=== PATIENT | female | born 1960 | race African-American/Black ===

== ENCOUNTER → 2016-12-01 | Outpatient (CLI) | payer BC | LOC: RAD 07:51 | PROVIDERS: ATTEND Surgery | DX: R22.2 Localized swelling, mass and lump, trunk (principal) | CPT/HCPCS: 82565; 72157; A9577 ==

== ENCOUNTER 2017-05-24 08:37 | Emergency (ER) | payer BC ==
[2017-05-24] MEDS ORDERED: KETOROLAC TROMETHAMINE INJ/PF 30 MG/1 ML SDV IV ONE (09:06)
[2017-05-24] MEDS ORDERED: IPRATROPIUM/ALBUTEROL 0.5-2.5 MG/3 ML AMPUL NEB ONE (09:07)
[2017-05-24] MEDS ORDERED: METHYLPREDNISOLONE INJ 125 MG/2 ML SDV IV ONE (09:07)
--- NOTE | 2017-05-24 09:11 | ER Document Report ---
ED Respiratory Problem - General Mode of Arrival: Ambulatory Information source: Patient TRAVEL OUTSIDE OF THE [place] IN LAST 30 DAYS: No - HPI Patient complains to provider of: Other - Difficulty breathing Associated symptoms: Other - See above <NYLA ROSAS - Last Filed: 05/24/17 09:05> <SEBASTIAN SANDS - Last Filed: 05/24/17 12:05> - General Chief Complaint: Breathing Difficulty Stated Complaint: DIFFICULTY BREATHING Time Seen by Provider: 05/24/17 08:55 Notes: Patient is a 56 year old female, with a past medical history including asthma, who presents to the emergency department complaining of difficulty breathing onset 3 days ago. Patient states that she sometimes has asthma exacerbations when there are weather changes but there wasn't anything major this weekend. Patient states she has used a nebulizer treatment at home 2x and her emergency inhaler 2x, states that the nebulizer treatments helped. Patient also complains of pain in her left chest when breathing in and nasal congestion. Patient denies cough. PCP: Dr. Burgess (NYLA ROSAS) - Related Data Allergies/Adverse Reactions: oxycodone HCl [From Percocet] Allergy (Intermediate, Verified 05/24/17 08:40) rash Penicillins Allergy (Verified 05/24/17 10:31) Past Medical History - General Information source: Patient - Social History Smoking Status: Never Smoker Family History: Reviewed & Not Pertinent Pulmonary Medical History: Reports: Hx Asthma Neurological Medical History: Reports: Hx Migraine GI Medical History: Reports: Hx Gastroesophageal Reflux Disease Musculoskeltal Medical History: Reports Hx Arthritis - Rheumatoid Past Surgical History: Reports: Hx Gynecologic Surgery - BSO, Hx Hysterectomy - Immunizations Hx Diphtheria, Pertussis, Tetanus Vaccination: Yes <NYLA ROSAS - Last Filed: 05/24/17 09:05> Review of Systems - Review of Systems Constitutional: No symptoms reported EENT: See HPI, Nose congestion Cardiovascular: No symptoms reported Respiratory: See HPI, Hurts to breathe, Other - Difficulty breathing. denies: Cough Gastrointestinal: No symptoms reported Genitourinary: No symptoms reported Female Genitourinary: No symptoms reported Musculoskeletal: No symptoms reported Skin: No symptoms reported Hematologic/Lymphatic: No symptoms reported Neurological/Psychological: No symptoms reported -: Yes All other systems reviewed and negative <NYLA ROSAS - Last Filed: 05/24/17 09:05> Physical Exam - Vital signs Interpretation: Tachypneic - Mild - General General appearance: Appears well, Alert - HEENT Head: Normocephalic, Atraumatic - Respiratory Respiratory status: Tachypnea - Mild Chest status: Nontender Breath sounds: Rhonchi - with cough Chest palpation: Normal - Cardiovascular Rhythm: Regular Heart sounds: Normal auscultation Murmur: No - Abdominal Inspection: Normal - Back Back: Normal, Nontender - Extremities General upper extremity: Normal inspection General lower extremity: Normal inspection - Neurological Neuro grossly intact: Yes Cognition: Normal Orientation: AAOx4 [place] Coma Scale Eye Opening: Spontaneous [place] Coma Scale Verbal: Oriented [place] Coma Scale Motor: Obeys Commands Jarvis Coma Scale Total: 15 Speech: Normal - Psychological Associated symptoms: Normal affect, Normal mood - Skin Skin Temperature: Warm Skin Moisture: Dry Skin Color: Normal <NYLA ROSAS - Last Filed: 05/24/17 09:05> Course <NYLA ROSAS - Last Filed: 05/24/17 09:05> - Laboratory Result Diagrams: 05/24/17 09:35 05/24/17 09:35 <SEBASTIAN SANDS - Last Filed: 05/24/17 12:05> - Re-evaluation Re-evalutation: 05/24/17 12:00 CT scan is negative for pulmonary embolus or infiltrates. Patient states her breathing is much better after breathing treatments. Auscultation does not really sound any different than previously. White blood cell count is low normal. She does report that she is almost out of albuterol for her nebulizer and her inhalers almost empty. (SEBASTIAN SANDS) - Vital Signs Vital signs: Temp Pulse Resp BP Pulse Ox 97.9 F 96 22 H 139/60 H 97 05/24/17 08:40 05/24/17 08:40 05/24/17 10:03 05/24/17 10:03 05/24/17 10:03 - Laboratory Laboratory results interpreted by me: 05/24/17 09:35 RDW 14.1 H Discharge <NYLA ROSAS - Last Filed: 05/24/17 09:05> <SEBASTIAN SANDS - Last Filed: 05/24/17 12:05> - Discharge Clinical Impression: Asthma exacerbation, Pleuritic chest pain Condition: Stable Disposition: HOME, SELF-CARE Additional Instructions: Pleurisy: Your chest pain has been diagnosed as pleuritis (pleurisy). This is an inflammation of the surface of the lung tissue. It can be caused by a virus or , occasionally, old scar tissue. It is painful but, for the most part, not a serious problem. This pain is usually made worse by deep breathing, coughing, or sudden movements of the upper body or arms. The treatment is relief of symptoms. It includes rest and anti- inflammatory medication. Resolution of the pain is usually rapid once anti- inflammatory medication is started. Warning signs of a more serious problem include: a fever, shortness of breath, pain that radiates to your jaw, shoulders or arms, or coughing up bloody sputum. If any of these symptoms occur, call the physician at once. //////////////////////////////////////////////////////////////////////////////// /////////////////////////////////////////////////////////// Your chest x-ray, CT scan, and lab work were normal. This appears to be an exacerbation of your asthma with pleuritic chest pain. You should use your nebulizer and inhalers regularly for shortness of breath. Start the prednisone as prescribed tomorrow. Take Tylenol and ibuprofen or Aleve for pain. Drink plenty of fluids. Get plenty of rest. Follow-up with Dr. Cedeno in 1-2 days if not improving. RETURN TO THE EMERGENCY ROOM IF ANY NEW OR WORSENING SYMPTOMS. Prescriptions: Albuterol Sulfate [Albuterol Sulfate 2.5mg/3 mL] 1 vial IH Q4 PRN #50 vial PRN Reason: Albuterol Sulfate [Proair HFA] 1 - 2 puff IH Q4 PRN #1 inhaler PRN Reason: Prednisone [Deltasone 10 mg Tablet] 10 mg PO ASDIR PRN #21 tablet PRN Reason: Referrals: PA CEDENO MD [Primary Care Provider] - Follow up as needed Scribe Attestation: 05/24/17 12:04 I personally performed the services described in the documentation, reviewed and edited the documentation which was dictated to the scribe in my presence, and it accurately records my words and actions. (SEBASTIAN SANDS) Scribe Documentation - Scribe Written by Kia:: kia Demarco, 05/24/17, 910 acting as scribe for :: Francisco <NYLA ROSAS - Last Filed: 05/24/17 09:05>
[2017-05-24 09:58] LABS: ABSOLUTE EOSINOPHILS # (AUTO) 0.1 10^3/uL (0.0-0.6); ABSOLUTE LYMPHOCYTES (AUTO) 1.9 10^3/uL (0.5-4.7); ABSOLUTE MONOCYTES (AUTO) 0.6 10^3/uL (0.1-1.4); ABSOLUTE NEUT (AUTO) 2.5 10^3/uL (1.7-8.2); BASOPHILS % (AUTO) 0.6 % (0-2); EOSINOPHILS % (AUTO) 1.6 % (0-6); HEMATOCRIT 39.8 % (36.0-47.0); HGB HCT DIFFERENCE -0.8; LYMPHOCYTES % (AUTO) 36.6 % (13-45); MEAN CORPUSCULAR HEMOGLOBIN 27.3 pg (27.0-33.4); MEAN CORPUSCULAR HGB CONC 32.7 g/dL (32.0-36.0); MEAN CORPUSCULAR VOLUME 84 fl (80-97); MONOCYTES % (AUTO) 11.3 % (3-13); RED BLOOD COUNT 4.77 10^6/uL (3.72-5.28); RED CELL DISTRIBUTION WIDTH 14.1 % (11.5-14.0); SEGMENTED NEUTROPHILS % (AUTO) 49.9 % (42-78); WHITE BLOOD COUNT 5.1 10^3/uL (4.0-10.5)
--- NOTE | 2017-05-24 09:58 | RADIOLOGY REPORT (SQ) ---
EXAM DESCRIPTION: CHEST SINGLE VIEW COMPLETED DATE/TIME: 05/24/2017 9:19 am REASON FOR STUDY: SOB, left pleuritic pain COMPARISON: March 2015 EXAM PARAMETERS: NUMBER OF VIEWS: One view. TECHNIQUE: Single frontal radiographic view of the chest acquired. RADIATION DOSE: NA LIMITATIONS: None. FINDINGS: LUNGS AND PLEURA: No opacities, masses or pneumothorax. No pleural effusion. MEDIASTINUM AND HILAR STRUCTURES: No masses. Contour normal. HEART AND VASCULAR STRUCTURES: Heart normal in size. Normal vasculature. BONES: No acute findings. HARDWARE: None in the chest. OTHER: No other significant finding. IMPRESSION: NO ACUTE RADIOGRAPHIC FINDING IN THE CHEST. TECHNICAL DOCUMENTATION: JOB ID: [id number]
[2017-05-24 10:09] LABS: ALANINE AMINOTRANSFERASE 35 U/L (9-52); ALBUMIN 4.5 g/dL (3.5-5.0); ALKALINE PHOSPHATASE 90 U/L (38-126); ANION GAP 9 (5-19); ASPARTATE AMINO TRANSFERASE 21 U/L (14-36); BILIRUBIN,DIRECT 0.3 mg/dL (0.0-0.4); BILIRUBIN,TOTAL 0.6 mg/dL (0.2-1.3); BLOOD UREA NITROGEN 12 mg/dL (7-20); CALCIUM 9.6 mg/dL (8.4-10.2); CARBON DIOXIDE 30 mmol/L (22-30); CHLORIDE 103 mmol/L (98-107); CREATININE RESULT 0.61 mg/dL (0.52-1.25); GLUCOSE 96 mg/dL (75-110); SODIUM 142.3 mmol/L (137-145); TOTAL PROTEIN 7.6 g/dL (6.3-8.2)
--- NOTE | 2017-05-24 11:01 | RADIOLOGY REPORT (SQ) ---
EXAM DESCRIPTION: CTA CHEST COMPLETED DATE/TIME: 05/24/2017 10:47 am REASON FOR STUDY: left pleutitic chest pain, SOB, elevated d-dimer COMPARISON: None. TECHNIQUE: CT scan of the chest performed using helical scanning technique with dynamic intravenous contrast injection. Images reviewed with lung, soft tissue and bone windows. Reconstructed coronal and sagittal MPR images reviewed. Additional 3 dimensional post-processing performed to develop Maximal Intensity Projection images (MT P). All images stored on PACS. All CT scanners at this facility use dose modulation, iterative reconstruction, and/or weight based d osing when appropriate to reduce radiation dose to as low as reasonably achievable (ALARA). [facility]: Dose Right [facility]: CareDose [facility]: Dose Right [facility]: Teradose 4D [facility]: [employer] CONTRAST TYPE AND DOSE: contrast/concentration: Isovue 370.00 mg/ml; Total Contrast Delivered: 74.0 ml; Total Saline Delivered: 101.4 ml RENAL FUNCTION: Creatinine 0.61 RADIATION DOSE: Up-to-date CT equipment and radiation dose reduction techniques were employed. CTDIv ol: 9.9 - 14.3 mGy. DLP: 507 mGy-cm. . LIMITATIONS: None. FINDINGS: LUNGS AND PLEURA: No masses, infiltrates, pneumothorax. No pleural effusions, calcificati ons. AORTA AND GREAT VESSELS: No aneurysm or dissection. HEART: No pericardial effusion. PULMONARY ARTERIES: No emboli visualized in the main pulmonary arteries or the segmental branches. HILAR AND MEDIASTINAL STRUCTURES: No identified masses or abnormal nodes. HARDWARE: None in the chest. UPPER ABDOMEN: There is fatty infiltration of the liver. THYROID AND OTHER SOFT TISSUES: No masses. No adenopathy. BONES: No acute or significant finding. 3D MIPS: Confirm above findings. OTHER: No other significant finding. IMPRESSION: NORMAL CTA OF THE CHEST. NO PULMONARY EMBOLI. TECHNICAL DOCUMENTATION: JOB ID: [id number] Quality ID # [id number]: Final reports with documentation of one or more dose reduction techniques (e.g., Au tomated exposure control, adjustment of the mA and/or kV according to patient size, use of iterative reconstruction technique) 2010 [email or web address]- All Rights Reserved
[2017-05-24] MEDS ORDERED: PREDNISONE 20 MG TABLET PO ONE (11:05)
[2017-05-24] MEDS ORDERED: ALBUTEROL SULFATE 0.083% NEB 2.5 MG/3 ML AMPUL NEB ONE (11:05)
[2017-05-24 12:02] VITALS: BP 144/77
== END 2017-05-24 12:10 | disposition home or self-care (01) ==
LOC: ER 08:37
DX: J45.901 Unspecified asthma with (acute) exacerbation (principal); R07.81 Pleurodynia; R07.1 Chest pain on breathing; R06.82 Tachypnea, not elsewhere classified; R09.81 Nasal congestion; Z88.5 Allergy status to narcotic agent; Z88.0 Allergy status to penicillin
CPT/HCPCS: 99284; 36415; 85025; 80053; 85379; 71010; 71275; J2930; J1885; J7512; J7620

== ENCOUNTER 2017-10-06 05:35 | Emergency (ER) | payer BC ==
[2017-10-06 06:07] LABS: APPEARANCE,URINE SLIGHTLY-CLOUDY; BILIRUBIN,URINE NEGATIVE (NEGATIVE); GLUCOSE, URINE NEGATIVE (NEGATIVE); KETONES,URINE NEGATIVE (NEGATIVE); LEUKOCYTE ESTERASE,URINE TRACE (NEGATIVE); NITRITE,URINE NEGATIVE (NEGATIVE); PROTEIN,URINE NEGATIVE (NEGATIVE); URINE SPECIFIC GRAVITY 1.018; UROBILINOGEN,URINE NEGATIVE mg/dL (<2.0)
[2017-10-06 06:07] LABS: ABSOLUTE EOSINOPHILS # (AUTO) 0.1 10^3/uL (0.0-0.6); ABSOLUTE LYMPHOCYTES (AUTO) 1.8 10^3/uL (0.5-4.7); ABSOLUTE MONOCYTES (AUTO) 0.6 10^3/uL (0.1-1.4); ABSOLUTE NEUT (AUTO) 3.7 10^3/uL (1.7-8.2); BASOPHILS % (AUTO) 0.5 % (0-2); EOSINOPHILS % (AUTO) 0.9 % (0-6); HEMOGLOBIN 12.3 g/dL (12.0-15.5); HGB HCT DIFFERENCE -0.1; LYMPHOCYTES % (AUTO) 29.3 % (13-45); MEAN CORPUSCULAR HEMOGLOBIN 27.3 pg (27.0-33.4); MEAN CORPUSCULAR HGB CONC 33.3 g/dL (32.0-36.0); MEAN CORPUSCULAR VOLUME 82 fl (80-97); MONOCYTES % (AUTO) 9.1 % (3-13); RED BLOOD COUNT 4.52 10^6/uL (3.72-5.28); SEGMENTED NEUTROPHILS % (AUTO) 60.2 % (42-78); WHITE BLOOD COUNT 6.1 10^3/uL (4.0-10.5)
[2017-10-06] MEDS ORDERED: MORPHINE SULFATE 10 MG/ML INJ IV PRN (06:08)
[2017-10-06] MEDS ORDERED: KETOROLAC TROMETHAMINE INJ/PF 30 MG/1 ML SDV IV ONE (06:08)
[2017-10-06] MEDS ORDERED: ONDANSETRON HCL INJ/PF 4 MG/2 ML SDV IV ONE ×2 (06:08→07:28)
[2017-10-06 06:11] LABS: WBC,URINE 0-1 /HPF
[2017-10-06 06:12] LABS: BACTERIA,URINE TRACE /HPF
[2017-10-06 06:30] LABS: ALANINE AMINOTRANSFERASE 47 U/L (9-52); ALBUMIN 4.2 g/dL (3.5-5.0); ALKALINE PHOSPHATASE 77 U/L (38-126); ANION GAP 13 (5-19); ASPARTATE AMINO TRANSFERASE 29 U/L (14-36); BILIRUBIN,DIRECT 0.3 mg/dL (0.0-0.4); BILIRUBIN,TOTAL 0.5 mg/dL (0.2-1.3); BLOOD UREA NITROGEN 12 mg/dL (7-20); CARBON DIOXIDE 26 mmol/L (22-30); CHLORIDE 105 mmol/L (98-107); CREATININE RESULT 0.65 mg/dL (0.52-1.25); GLUCOSE 120 mg/dL (75-110); POTASSIUM 3.8 mmol/L (3.6-5.0); SODIUM 144.1 mmol/L (137-145); TOTAL PROTEIN 6.9 g/dL (6.3-8.2)
[2017-10-06] MEDS ORDERED: HYDROCODONE/ACETAMINOPHEN 5-325 MG TABLET PO ONE (07:29)
--- NOTE | 2017-10-06 07:36 | ER Document Report ---
ED General - General Chief Complaint: Flank Pain Stated Complaint: BACK/SIDE PAIN Time Seen by Provider: 10/06/17 06:43 Notes: 57-year-old female with a history of kidney stones presents emergency department complaining of dull aching left-sided flank pain starting yesterday afternoon associated with sharp stabbing flank pain that started at 3 AM this morning. Admits nausea and vomiting, denies fevers or chills. States the pain radiates into her left lower quadrant, states this feels just like her prior kidney stones. Denies fevers or chills. TRAVEL OUTSIDE OF THE [place] IN LAST 30 DAYS: No - Related Data Allergies/Adverse Reactions: oxycodone HCl [From Percocet] Allergy (Intermediate, Verified 05/24/17 08:40) rash Penicillins Allergy (Verified 05/24/17 10:31) Past Medical History - General Information source: Patient - Social History Smoking Status: Never Smoker Chew tobacco use (# tins/day): No Frequency of alcohol use: None Drug Abuse: None Family History: Reviewed & Not Pertinent Patient has suicidal ideation: No Patient has homicidal ideation: No Pulmonary Medical History: Reports: Hx Asthma Neurological Medical History: Reports: Hx Migraine Renal/ Medical History: Denies: Hx Peritoneal Dialysis GI Medical History: Reports: Hx Gastroesophageal Reflux Disease Musculoskeltal Medical History: Reports Hx Arthritis - Rheumatoid Past Surgical History: Reports: Hx Gynecologic Surgery - BSO, Hx Hysterectomy - Immunizations Hx Diphtheria, Pertussis, Tetanus Vaccination: Yes Review of Systems - Review of Systems Constitutional: No symptoms reported. denies: Fever Gastrointestinal: See HPI, Abdominal pain, Nausea, Vomiting. denies: Diarrhea Genitourinary: See HPI -: Yes All other systems reviewed and negative Physical Exam - Vital signs Vitals: Temp Pulse Resp BP Pulse Ox 97.8 F 88 16 124/67 100 10/06/17 05:41 10/06/17 05:41 10/06/17 05:41 10/06/17 05:41 10/06/17 05:41 - Notes Notes: GENERAL: Alert, interacts well. No acute distress. HEAD: Normocephalic, atraumatic EYES: Pupils equal, round and reactive to light, extraocular movements intact. ENT: Oral mucosa moist, tongue midline. NECK: Full range of motion, supple, trachea midline. LUNGS: Clear to auscultation bilaterally, no wheezes, rales or rhonchi, no respiratory distress. HEART: Regular rate and rhythm, no murmurs, gallops, rubs. ABDOMEN: Soft, small left-sided abdominal pain without guarding, rigidity or rebounding, nondistended, bowel sounds present in all 4 quadrants. EXTREMITIES: Moves all 4 extremities spontaneously, no edema, radial and dorsalis pedis pulses 2/4 bilaterally. No cyanosis. NEUROLOGICAL: Alert and oriented x3, normal speech. PSYCH: Normal mood, normal affect. SKIN: Warm, Dry, normal turgor, no rashes or lesions noted. Course - Re-evaluation Re-evalutation: 10/06/17 07:31 CBC unremarkable, CMP unremarkable, urinalysis shows small blood and trace leukocyte esterase, 1-5 RBCs, 0-1 WBCs. This will be sent for culture although it is not suggestive of urinary tract infection at this time. Given the fact that the patient states she has had 2-3 CAT scans every year for the past several years for kidney stones and this is following her usual pattern of kidney stone and there is no sign of an infecting stone or kidney damage at this time patient and are agreeable to plan of not getting a CAT scan at this time, being treated presumptively for kidney stone and returning if the pain does not resolve within 3 days, if she develops fevers or has any new or concerning symptoms. - Vital Signs Vital signs: Temp Pulse Resp BP Pulse Ox 97.8 F 88 16 124/67 100 10/06/17 05:41 10/06/17 05:41 10/06/17 05:41 10/06/17 05:41 10/06/17 05:41 - Laboratory Result Diagrams: 10/06/17 06:00 10/06/17 06:00 Laboratory results interpreted by me: 10/06/17 10/06/17 05:50 06:00 Glucose 120 H Urine Blood SMALL H Ur Leukocyte Esterase TRACE H Discharge - Discharge Clinical Impression: Acute left flank pain, Ureterolithiasis Condition: Stable Disposition: HOME, SELF-CARE Additional Instructions: Kidney Stone You are passing or have passed a kidney stone. These stones are usually due to increased calcium or uric acid concentrations in your urine. Stones within the kidney itself are not painful. The pain occurs as the stone leaves the kidney to pass down the long tube, called the ureter, leading to the bladder. If the stone is small, it will usually pass by itself. Most patients can pass the stone at home. You will usually receive medications for pain, nausea or vomiting, and sometimes a medication to assist in passing the kidney stone. However, if the pain is very severe or if vomiting prevents you from taking oral pain medications, you may need to return for further treatment. Drink three or four quarts of fluids per day. You will be given pain medication (if needed) and urine strainers. Strain all your urine to see if the stone passes. If your doctor has asked you to bring the stone in for analysis, return with the stone once it has passed. Return if pain or vomiting become severe, if you develop a high fever, if you are unable to pass your urine, or if other unusual symptoms occur. Please strain your urine. You may take ibuprofen 800 mg every 8 hours as needed for pain. Pyridium will help to numb your ureter and bladder and decrease the pain. Zofran and Phenergan are for nausea, Flomax will help to pass the stone more easily. If your pain is not controlled by this combination of medications you may use the hydrocodone as well for pain. Please dissolve 1 scoop of MiraLAX (or generic equivalent) in a glass of water once a day to prevent constipation while on these pain medications. Do not drive or operate heavy machinery while taking these pain medications. Prescriptions: Ondansetron [Zofran Odt 4 mg Tablet] 1 - 2 tab PO Q4HP PRN #10 tab.rapdis PRN Reason: Hydrocodone/Acetaminophen [[place] 5-325 Tablet] 1 each PO ASDIR PRN #12 tablet PRN Reason: Promethazine HCl [Phenergan 25 mg Tablet] 25 - 50 mg PO ASDIR PRN #12 tablet PRN Reason: Tamsulosin HCl [Flomax 0.4 mg Cap.sr] 0.4 mg PO DAILY #7 cap.sr.24h Forms: Return to Work Referrals: TORRIE MELISSA MD [Primary Care Provider] - Follow up in 3-5 days
[2017-10-06 08:25] VITALS: BP 120/60
== END 2017-10-06 08:25 | disposition home or self-care (01) ==
LOC: ER 05:35
DX: N20.1 Calculus of ureter (principal); R10.9 Unspecified abdominal pain; M54.9 Dorsalgia, unspecified; R11.2 Nausea with vomiting, unspecified
CPT/HCPCS: 96376; 99284; 96374; 96375; 36415; 85025; 80053; 81001; J1885; J2270; J2405

== ENCOUNTER → 2017-10-12 | Outpatient (CLI) | payer BC ==
--- NOTE | 2017-10-12 16:37 | WOMENS IMAGING REPORT ---
EXAM DESCRIPTION: 3D SCREENING MAMMO BILAT COMPLETED DATE/TIME: 10/12/2017 3:54 pm REASON FOR STUDY: ROUTINE SCREENING; Z12.31 Z12.31 ENCNTR SCREEN MAMMOGRAM FOR MALIGNANT NEOPLASM O F SAMANTHA COMPARISON: Multiple since 2008 TECHNIQUE: Standard craniocaudal and mediolateral oblique views of each breast recorded using digita l acquisition and breast tomosynthesis. LIMITATIONS: None. FINDINGS: No masses, calcifications or architectural distortion. No areas of suspicion. Read with the assistance of CAD. .[facility] - R2 Cenova Version 1.3 .[facility] Imaging - R2 Cenova Version 1.3 .[facility] - R2 Cenova Version 2.4 .[facility] [place] - R2 Cenova Version 2.4 .[facility] - R2 Program Checker Version 9.2 IMPRESSION: NORMAL MAMMOGRAM. BIRADS 1. BREAST DENSITY: b. There are scattered areas of fibroglandular density. BIRAD: 1 NEGATIVE RECOMMENDATION: ROUTINE SCREENING COMMENT: The patient has been notified of the results by letter per SA requirements. Additional no tification policies are in place for contacting patient with suspicious or incomplete findings. Quality ID #[id number]: The [employer] recommends an annual screening mammogram for women aged 40 years or over. This facility utilizes a reminder system to ensure that all patients receive reminder letters, and/or direct phone calls for appointments. This includes reminders for routine scr eening mammograms, diagnostic mammograms, or other Breast Imaging Interventions when appropriate. Th is patient will be placed in the appropriate reminder system. The [employer] (ACR) has developed recommendations for screening MRI of the breast s in certain patient populations, to be used in conjunction with mammography. Breast MRI surveillanc e may be appropriate for women with more than 20% lifetime risk of developing breast cancer as deter mined by genetic testing, significant family history of the disease, or history of mantle radiation f or Hodgkins Disease. ACR Practice Guidelines 2008. DBT Technology DBT is a type of tomographic mammography. With conventional mammography, overlapping breast tissue ma y make lesions difficult to detect, even with good compression. DBT uses an x-ray tube that rotates a round the breast, taking images at different angles. These images are then combined to create thin sl ices of the breast that the radiologist can view as a 3D reconstruction. The [employer] unit can perform full-field digital mammograms (2D imaging); or DBT (3D imaging); or both, in a combination mode that quickly performs both the mammogram and the tomosynthesis scan while the breast is still compressed. PQRS 6045F: Fluoroscopic imaging is not utilized for breast tomosynthesis. TECHNICAL DOCUMENTATION: FINDING NUMBER: (1) ASSESSMENT: (1) JOB ID: [id number] [email or web address]- All Rights Reserved
== END ==
LOC: WI 15:38
PROVIDERS: ATTEND Internal Medicine
DX: Z12.31 Encounter for screening mammogram for malignant neoplasm of breast (principal)
CPT/HCPCS: 77063; G0202; 77067

== ENCOUNTER 2018-02-05 00:32 | Emergency (ER) | payer BC ==
[2018-02-05] MEDS ORDERED: ONDANSETRON HCL INJ/PF 4 MG/2 ML SDV IV ONE (01:07)
[2018-02-05] MEDS ORDERED: KETOROLAC TROMETHAMINE INJ/PF 30 MG/1 ML SDV IV ONE (01:07)
[2018-02-05] MEDS ORDERED: MORPHINE SULFATE 10 MG/ML INJ IV ONE (01:07)
[2018-02-05] MEDS ORDERED: NORMAL SALINE 1000 ML 1,000 ML IV ONE (01:08)
--- NOTE | 2018-02-05 01:09 | ER Document Report ---
ED GI/ - General Chief Complaint: Possible Kidney Stone Stated Complaint: RIGHT SIDE FLANK PAIN Time Seen by Provider: 02/05/18 01:03 Notes: Patient is a 57-year-old female who comes emergency department for chief complaint of pain in her right flank radiating around to her right mid to lower abdomen, symptoms started suddenly prior to arrival, she reports nausea, denies vomiting, denies fever or chills, denies vaginal discharge or bleeding. She does have a history of kidney stones in the kidney although she states she has never passed one. She has had a total hysterectomy. TRAVEL OUTSIDE OF THE [place] IN LAST 30 DAYS: No - Related Data Allergies/Adverse Reactions: oxycodone HCl [From Percocet] Allergy (Intermediate, Verified 05/24/17 08:40) rash Penicillins Allergy (Verified 05/24/17 10:31) escitalopram [From Lexapro] Adverse Reaction (Verified 02/05/18 00:47) venlafaxine [From Effexor] Adverse Reaction (Verified 02/05/18 00:46) Past Medical History - General Information source: Patient, Relative - Social History Smoking Status: Never Smoker Drug Abuse: None Lives with: Family Family History: Reviewed & Not Pertinent Pulmonary Medical History: Reports: Hx Asthma Neurological Medical History: Reports: Hx Migraine Renal/ Medical History: Denies: Hx Peritoneal Dialysis GI Medical History: Reports: Hx Gastroesophageal Reflux Disease Musculoskeltal Medical History: Reports Hx Arthritis - Rheumatoid Past Surgical History: Reports: Hx Gynecologic Surgery - BSO, Hx Hysterectomy - Immunizations Hx Diphtheria, Pertussis, Tetanus Vaccination: Yes Review of Systems - Review of Systems Constitutional: No symptoms reported EENT: No symptoms reported Cardiovascular: No symptoms reported Respiratory: No symptoms reported Gastrointestinal: See HPI Genitourinary: See HPI Female Genitourinary: No symptoms reported Musculoskeletal: No symptoms reported Skin: No symptoms reported Hematologic/Lymphatic: No symptoms reported Neurological/Psychological: No symptoms reported Physical Exam - Vital signs Vitals: Temp Pulse Resp BP Pulse Ox 97.9 F 86 24 H 137/69 H 100 02/05/18 00:51 02/05/18 00:51 02/05/18 00:51 02/05/18 00:51 02/05/18 00:51 Interpretation: Normal - General General appearance: Anxious In distress: Moderate - Patient rolling on the bed, appears to be uncomfortable - HEENT Head: Normocephalic, Atraumatic Eyes: Normal Conjunctiva: Normal Extraocular movements intact: Yes Eyelashes: Normal Pupils: PERRL Nasal: Normal Mouth/Lips: Normal Mucous membranes: Normal Pharynx: Normal Neck: Normal - Respiratory Respiratory status: No respiratory distress Chest status: Nontender Breath sounds: Normal. No: Decreased air movement, Wheezing Chest palpation: Normal - Cardiovascular Rhythm: Regular. No: Tachycardia Heart sounds: Normal auscultation, S1 appreciated, S2 appreciated Murmur: No - Abdominal Inspection: Normal Distension: No distension Bowel sounds: Normal Tenderness: Tender - Tender in the mid right and right lower quadrant, remaining abdomen is completely benign. No: Guarding Organomegaly: No organomegaly - Back Back: Normal, Nontender, CVA tenderness - Right CVA tenderness noted, otherwise unremarkable back exam - Extremities General upper extremity: Normal inspection, Nontender, Normal color, Normal ROM , Normal temperature General lower extremity: Normal inspection, Nontender, Normal color, Normal ROM , Normal temperature, Normal weight bearing. No: Rolanda's sign - Neurological Neuro grossly intact: Yes Cognition: Normal Orientation: AAOx4 Hawley Coma Scale Eye Opening: Spontaneous Hawley Coma Scale Verbal: Oriented Hawley Coma Scale Motor: Obeys Commands Hawley Coma Scale Total: 15 Speech: Normal Motor strength normal: LUE, RUE, LLE, RLE Sensory: Normal - Psychological Associated symptoms: Anxious - Skin Skin Temperature: Warm Skin Moisture: Dry Skin Color: Normal Course - Re-evaluation Re-evalutation: The patient initially very uncomfortable, she has right CVA tenderness and right mid to lower abdomen tenderness on exam, does suggest passing kidney stone. Patient medicated, afterwards symptoms resolved. CBC unremarkable, chemistry unremarkable, urinalysis shows hematuria but does not show infection. Patient's vital signs are unremarkable. CAT scan was performed after discussion with patient, decided to fully evaluate , she has a large left nephrolithiasis and a small 2 mm right ureterolithiasis with some hydronephrosis. No other abnormalities noted other than incidental fatty liver. Discussed all findings with patient, provided with a copy of her report, discussed follow-up, return precautions in detail. Patient and state understanding and agreement. - Vital Signs Vital signs: Temp Pulse Resp BP Pulse Ox 97.9 F 86 24 H 137/69 H 100 04/07/18 00:51 04/07/18 00:51 02/05/18 00:51 02/05/18 00:51 02/05/18 00:51 - Laboratory Result Diagrams: 02/05/18 01:45 02/05/18 01:45 Laboratory results interpreted by me: 02/05/18 02/05/18 02/05/18 01:45 01:45 01:45 MCH 26.6 L RDW 15.5 H Sodium 147.0 H Carbon Dioxide 33 H Urine Blood LARGE H Discharge - Discharge Clinical Impression: Ureterolithiasis, Flank pain Abdominal pain Qualifiers: Abdominal location: right lower quadrant Qualified Code(s): R10.31 - Right lower quadrant pain Condition: Stable Disposition: HOME, SELF-CARE Additional Instructions: You are passing a 2 mm kidney stone on the right side. You have a kidney stone that is large in the left kidney that is not passing at this time. You also have fatty liver as discussed. Follow-up with primary care for fatty liver, follow-up with urology for additional management of kidney stones, take medications as prescribed. Return if you worsen including fever, vomiting, increased pain, or any other concerning or worsening symptoms. [facility] [address] [place] [address] , [place] [address] Prescriptions: Morphine Sulfate [Morphine Ir 15 Mg Tablet] 15 mg PO Q4HP PRN #15 tablet PRN Reason: Ondansetron [Zofran Odt 4 mg Tablet] 1 - 2 tab PO Q4H PRN #15 tab.rapdis PRN Reason: For Nausea/Vomiting Tamsulosin HCl [Flomax 0.4 mg Cap.sr] 0.4 mg PO DAILY #7 cap.sr.24h Referrals: PA GIBSON MD [Primary Care Provider] - Follow up as needed
[2018-02-05 02:02] LABS: ABSOLUTE EOSINOPHILS # (AUTO) 0.1 10^3/uL (0.0-0.6); ABSOLUTE LYMPHOCYTES (AUTO) 1.9 10^3/uL (0.5-4.7); ABSOLUTE MONOCYTES (AUTO) 0.7 10^3/uL (0.1-1.4); ABSOLUTE NEUT (AUTO) 3.7 10^3/uL (1.7-8.2); BASOPHILS % (AUTO) 0.7 % (0-2); EOSINOPHILS % (AUTO) 1.9 % (0-6); HEMATOCRIT 39.3 % (36.0-47.0); HEMOGLOBIN 12.8 g/dL (12.0-15.5); LYMPHOCYTES % (AUTO) 29.9 % (13-45); MEAN CORPUSCULAR HEMOGLOBIN 26.6 pg (27.0-33.4); MEAN CORPUSCULAR HGB CONC 32.5 g/dL (32.0-36.0); MEAN CORPUSCULAR VOLUME 82 fl (80-97); MONOCYTES % (AUTO) 10.2 % (3-13); PLATELET COUNT 178 10^3/uL (150-450); RED BLOOD COUNT 4.81 10^6/uL (3.72-5.28); RED CELL DISTRIBUTION WIDTH 15.5 % (11.5-14.0); SEGMENTED NEUTROPHILS % (AUTO) 57.3 % (42-78); TOTAL CELLS COUNTED % (AUTO) 100 %; WHITE BLOOD COUNT 6.5 10^3/uL (4.0-10.5)
[2018-02-05 02:13] LABS: ALANINE AMINOTRANSFERASE 36 U/L (9-52); ALBUMIN 4.2 g/dL (3.5-5.0); ALKALINE PHOSPHATASE 74 U/L (38-126); ANION GAP 8 (5-19); ASPARTATE AMINO TRANSFERASE 27 U/L (14-36); BILIRUBIN,DIRECT 0.3 mg/dL (0.0-0.4); BILIRUBIN,TOTAL 0.3 mg/dL (0.2-1.3); BLOOD UREA NITROGEN 11 mg/dL (7-20); CALCIUM 9.2 mg/dL (8.4-10.2); CARBON DIOXIDE 33 mmol/L (22-30); CHLORIDE 106 mmol/L (98-107); GLUCOSE 106 mg/dL (75-110); POTASSIUM 3.6 mmol/L (3.6-5.0); TOTAL PROTEIN 7.5 g/dL (6.3-8.2)
--- NOTE | 2018-02-05 02:20 | RADIOLOGY REPORT (SQ) ---
EXAM DESCRIPTION: CT ABDOMEN AND PELVIS WITHOUT CONTRAST CLINICAL HISTORY: right flank and abd pain COMPARISON: 09/17/2015 TECHNIQUE: CT of the abdomen and pelvis without IV contrast. Evaluation of the solid organs and vasculature is suboptimal due to lack of IV contrast. DLP: 599.14 mGy-cm FINDINGS: Lung Bases: The visualized lung bases are clear. Bones: No destructive bone lesions identified. Minimal degenerative change of the spine. Abdomen: Liver: The liver has normal size and decreased density. Gallbladder: No calcified gallstones. Spleen, Pancreas, and Adrenal Glands: The spleen, pancreas, and adrenal glands are unremarkable. Kidneys: There is an 8 mm nonobstructing left renal calculus. Mild right hydroureter and hydronephrosis. 2 mm obstructing calculus in the distal right ureter within 1 cm of the right UVJ. Vasculature: The aorta and IVC have normal caliber and position. Stomach: The stomach and duodenum have normal course. Other: No free intraperitoneal air. No free fluid or lymphadenopathy. Pelvis: Bladder: Urinary bladder is unremarkable. Bowel: Scattered diverticula of the colon without pericolic fat stranding. Appendix: Normal appendix. Pelvis: Prior hysterectomy. IMPRESSION: 1. There is a 0.2 cm calculus in the distal right ureter producing mild right hydroureter and hydronephrosis. 2. There is a 0.8 cm nonobstructing left renal calculus. 3. Diverticulosis without evidence of diverticulitis. 4. Hepatic steatosis. This exam was performed according to our departmental dose-optimization program, which includes automated exposure control, adjustment of the mA and/or kV according to patient size and/or use of iterative reconstruction technique.
[2018-02-05 02:35] LABS: APPEARANCE,URINE CLEAR; BILIRUBIN,URINE NEGATIVE (NEGATIVE); COLOR,URINE YELLOW; GLUCOSE, URINE NEGATIVE (NEGATIVE); KETONES,URINE NEGATIVE (NEGATIVE); LEUKOCYTE ESTERASE,URINE NEGATIVE (NEGATIVE); NITRITE,URINE NEGATIVE (NEGATIVE); PROTEIN,URINE NEGATIVE (NEGATIVE); URINE SPECIFIC GRAVITY 1.011; UROBILINOGEN,URINE NEGATIVE mg/dL (<2.0)
[2018-02-05 03:47] VITALS: BP 149/79
== END 2018-02-05 03:47 | disposition home or self-care (01) ==
LOC: ER 00:32
DX: N20.1 Calculus of ureter (principal); R10.9 Unspecified abdominal pain; R10.31 Right lower quadrant pain
CPT/HCPCS: 99284; 36415; 85025; 80053; 81001; 76380; J1885; J2270; J2405; J7030

== ENCOUNTER 2018-03-21 02:34 | Inpatient (IN) | payer BC ==
[2018-03-21 03:34] LABS: ABSOLUTE BASOPHILS # (AUTO) 0.1 10^3/uL (0.0-0.2); ABSOLUTE EOSINOPHILS # (AUTO) 0.2 10^3/uL (0.0-0.6); ABSOLUTE LYMPHOCYTES (AUTO) 2.9 10^3/uL (0.5-4.7); ABSOLUTE MONOCYTES (AUTO) 0.9 10^3/uL (0.1-1.4); ABSOLUTE NEUT (AUTO) 3.1 10^3/uL (1.7-8.2); BASOPHILS % (AUTO) 0.7 % (0-2); EOSINOPHILS % (AUTO) 3.1 % (0-6); HEMATOCRIT 40.3 % (36.0-47.0); HEMOGLOBIN 13.1 g/dL (12.0-15.5); LYMPHOCYTES % (AUTO) 40.4 % (13-45); MEAN CORPUSCULAR HEMOGLOBIN 26.4 pg (27.0-33.4); MEAN CORPUSCULAR HGB CONC 32.4 g/dL (32.0-36.0); MEAN CORPUSCULAR VOLUME 82 fl (80-97); MONOCYTES % (AUTO) 12.1 % (3-13); PLATELET COUNT 181 10^3/uL (150-450); RED BLOOD COUNT 4.93 10^6/uL (3.72-5.28); RED CELL DISTRIBUTION WIDTH 14.6 % (11.5-14.0); SEGMENTED NEUTROPHILS % (AUTO) 43.7 % (42-78); TOTAL CELLS COUNTED % (AUTO) 100 %; WHITE BLOOD COUNT 7.1 10^3/uL (4.0-10.5)
[2018-03-21] MEDS ORDERED: KETOROLAC TROMETHAMINE INJ/PF 30 MG/1 ML SDV IV ONE (03:35)
[2018-03-21] MEDS ORDERED: ONDANSETRON HCL INJ/PF 4 MG/2 ML SDV IV ONE (03:35)
--- NOTE | 2018-03-21 03:39 | ER Document Report ---
ED General - General Mode of Arrival: Ambulatory Information source: Patient TRAVEL OUTSIDE OF THE [place] IN LAST 30 DAYS: No <MAVIS SCHROEDER - Last Filed: 03/21/18 05:56> <BENITO RYAN - Last Filed: 03/21/18 06:24> - General Chief Complaint: Flank Pain Stated Complaint: FLANK PAIN Time Seen by Provider: 03/21/18 03:14 Notes: Patient is a 57 year old female with a history of kidney stones presents to the emergency department complaining of left lower quadrant pain and left flank pain onset around 0200 today. Patient states she was woken up due to the a sharp lower quadrant abdominal pain that radiates into her left flank. Patient states her pain is similar to her previous kidney stones. She further states she has seen a urologist and was told she had a kidney stone that could possibly result in a lithotripsy. Patient also complains of nausea. Patient denies any diarrhea, vomiting, dysuria or fevers. (MAVIS SCHROEDER) - Related Data Allergies/Adverse Reactions: oxycodone HCl [From Percocet] Allergy (Intermediate, Verified 03/21/18 03:31) rash escitalopram [From Lexapro] Adverse Reaction (Verified 03/21/18 03:31) venlafaxine [From Effexor] Adverse Reaction (Verified 03/21/18 03:31) Past Medical History - General Information source: Patient - Social History Smoking Status: Never Smoker Cigarette use (# per day): No Chew tobacco use (# tins/day): No Smoking Education Provided: No Frequency of alcohol use: None Family History: Reviewed & Not Pertinent Patient has suicidal ideation: No Patient has homicidal ideation: No Pulmonary Medical History: Reports: Hx Asthma Neurological Medical History: Reports: Hx Migraine Renal/ Medical History: Reports: Hx Kidney Stones GI Medical History: Reports: Hx Gastroesophageal Reflux Disease Musculoskeltal Medical History: Reports Hx Arthritis - Rheumatoid Past Surgical History: Reports: Hx Gynecologic Surgery - BSO, Hx Hysterectomy - Immunizations Hx Diphtheria, Pertussis, Tetanus Vaccination: Yes <MAVIS SCHROEDER - Last Filed: 03/21/18 05:56> Review of Systems - Review of Systems Constitutional: No symptoms reported EENT: No symptoms reported Cardiovascular: No symptoms reported Respiratory: No symptoms reported Gastrointestinal: See HPI, Abdominal pain Genitourinary: See HPI, Flank pain Female Genitourinary: No symptoms reported Musculoskeletal: No symptoms reported Skin: No symptoms reported Hematologic/Lymphatic: No symptoms reported Neurological/Psychological: No symptoms reported -: Yes All other systems reviewed and negative <ALEXANDREMAVIS FLOWERS - Last Filed: 03/21/18 05:56> Physical Exam <ALEXANDREMAVIS FLOWERS - Last Filed: 03/21/18 05:56> <BENITO RYAN - Last Filed: 03/21/18 06:24> - Vital signs Vitals: Temp Pulse Resp BP Pulse Ox 98.1 F 82 18 137/77 H 98 03/21/18 02:39 03/21/18 02:39 03/21/18 02:39 03/21/18 02:39 03/21/18 02:39 - Notes Notes: GENERAL: Alert, interacts well. Appear quite uncomfortable. Crying and holding left hand side. HEAD: Normocephalic, atraumatic. EYES: Pupils equal, round, and reactive to light. Extraocular movements intact. ENT: Oral mucosa moist, tongue midline. NECK: Full range of motion. Supple. Trachea midline. LUNGS: Clear to auscultation bilaterally, no wheezes, rales, or rhonchi. No respiratory distress. HEART: Regular rate and rhythm. No murmurs, gallops, or rubs. ABDOMEN: Soft, tender to LLQ and left flank. Non-distended. Bowel sounds present in all 4 quadrants. EXTREMITIES: Moves all 4 extremities spontaneously. NEUROLOGICAL: Alert and oriented x3. Normal speech. PSYCH: Tearful, anxious. SKIN: Warm, dry, and normal turgor. Lipoma on the left forearm. (ALEXANDREMAVIS FLOWERS) Course - Laboratory Result Diagrams: 03/21/18 03:25 03/21/18 03:25 <ALEXANDREANDIRAY - Last Filed: 03/21/18 05:56> - Laboratory Result Diagrams: 03/21/18 03:25 03/21/18 03:25 <BENITO RYAN - Last Filed: 03/21/18 06:24> - Re-evaluation Re-evalutation: 03/21/18 05:30 CBC unremarkable, no leukocytosis, no left shift, CMP grossly unremarkable, no renal failure, urinalysis shows small blood but large leukocyte esterase, 37 WBCs only 4+ RBCs and 2+ bacteria. I am concerned for the possibility of an infection given the mismatch between RBCs and WBCs as well as the bacteria. CT scan of the abdomen and pelvis without contrast does show a 0.8 cm obstructing stone of the proximal left ureter producing moderate left hydronephrosis. Ketorolac and Zofran did not relieve her pain, continue to have nausea and dry heaving. Morphine did partially relieve her pain although she still is having some pain. I discussed these findings with Dr. Huerta the urologist who agrees that the patient should have a stent placed. He feels that her urinalysis more likely resume represents a cystitis than an infection behind the stone. He will place a stent in the patient today, patient's infection is being treated with Rocephin. Dr. Khan agrees to admit the patient to his service. (BENITO RYAN) - Vital Signs Vital signs: Temp Pulse Resp BP Pulse Ox 98.3 F 80 16 136/70 H 95 03/21/18 05:19 03/21/18 05:19 03/21/18 05:19 03/21/18 05:19 03/21/18 05:19 - Laboratory Laboratory results interpreted by me: 03/21/18 03/21/18 03/21/18 03:25 03:25 03:25 MCH 26.4 L RDW 14.6 H Carbon Dioxide 31 H Glucose 112 H ALT 53 H Urine Blood SMALL H Ur Leukocyte Esterase LARGE H Discharge <MAVIS SCHROEDER - Last Filed: 03/21/18 05:56> - Discharge Admitting Provider: Hospitalist - Bill Unit Admitted: Telemetry <BENTIO RYAN - Last Filed: 03/21/18 06:24> - Discharge Clinical Impression: Hydronephrosis concurrent with and due to calculi of kidney and ureter UTI (urinary tract infection) Qualifiers: Urinary tract infection type: acute cystitis Hematuria presence: with hematuria Qualified Code(s): N30.01 - Acute cystitis with hematuria Condition: Fair Disposition: ADMITTED INPATIENT Scribe Attestation: 03/21/18 06:24 I personally performed the services described in the documentation, reviewed and edited the documentation which was dictated to the scribe in my presence, and it accurately records my words and actions. (BENITO RYAN) Scribe Documentation - Scribe Written by Roberto:: Roberto Fierro, 03/21/2018 03:56 acting as scribe for :: Juan <MAVIS SCHROEDER - Last Filed: 03/21/18 05:56>
[2018-03-21 03:46] LABS: ALANINE AMINOTRANSFERASE 53 U/L (9-52); ALBUMIN 4.3 g/dL (3.5-5.0); ALKALINE PHOSPHATASE 81 U/L (38-126); ANION GAP 11 (5-19); ASPARTATE AMINO TRANSFERASE 30 U/L (14-36); BILIRUBIN,DIRECT 0.3 mg/dL (0.0-0.4); BILIRUBIN,TOTAL 0.4 mg/dL (0.2-1.3); BLOOD UREA NITROGEN 15 mg/dL (7-20); CALCIUM 9.8 mg/dL (8.4-10.2); CARBON DIOXIDE 31 mmol/L (22-30); CHLORIDE 102 mmol/L (98-107); GLUCOSE 112 mg/dL (75-110); POTASSIUM 3.8 mmol/L (3.6-5.0); SODIUM 143.5 mmol/L (137-145); TOTAL PROTEIN 7.4 g/dL (6.3-8.2)
[2018-03-21 03:51] LABS: APPEARANCE,URINE CLEAR; BILIRUBIN,URINE NEGATIVE (NEGATIVE); COLOR,URINE AMBER; GLUCOSE, URINE NEGATIVE (NEGATIVE); KETONES,URINE NEGATIVE (NEGATIVE); LEUKOCYTE ESTERASE,URINE LARGE (NEGATIVE); NITRITE,URINE NEGATIVE (NEGATIVE); PROTEIN,URINE NEGATIVE (NEGATIVE); URINE SPECIFIC GRAVITY 1.014; UROBILINOGEN,URINE NEGATIVE mg/dL (<2.0)
--- NOTE | 2018-03-21 04:15 | RADIOLOGY REPORT (SQ) ---
EXAM DESCRIPTION: CT ABDOMEN AND PELVIS WITHOUT CONTRAST CLINICAL HISTORY: left flank pain, h/o stones COMPARISON: 02/05/2018 TECHNIQUE: CT of the abdomen and pelvis without IV contrast. Evaluation of the solid organs and vasculature is suboptimal due to lack of IV contrast. DLP: 752.33 mGy-cm FINDINGS: Lung Bases: The visualized lung bases are clear. Degenerative change of the spine. Bones: No destructive bone lesions identified. Abdomen: Liver: The liver has normal size and decreased density. Gallbladder: No calcified gallstones. Spleen, Pancreas, and Adrenal Glands: The spleen, pancreas, and adrenal glands are unremarkable. Kidneys: There is a 0.8 cm obstructing calculus in the proximal left ureter producing moderate left hydronephrosis. No right-sided hydronephrosis. Vasculature: The aorta and IVC have normal caliber and position. Stomach: The stomach and duodenum have normal course. Other: No free intraperitoneal air. No free fluid or lymphadenopathy. Pelvis: Bladder: Urinary bladder is unremarkable. Bowel: Scattered diverticula of the colon. No pericolic fat stranding. Appendix: Normal appendix. Pelvis: Prior hysterectomy. IMPRESSION: 1. 0.8 cm obstructing calculus in the proximal left ureter producing moderate left hydronephrosis. 2. Diverticulosis without evidence of acute diverticulitis. 3. Hepatic steatosis. This exam was performed according to our departmental dose-optimization program, which includes automated exposure control, adjustment of the mA and/or kV according to patient size and/or use of iterative reconstruction technique.
[2018-03-21] MEDS ORDERED: MORPHINE SULFATE 10 MG/ML INJ IV ONE (04:42)
[2018-03-21] MEDS ORDERED: CEFTRIAXONE 1 GM/D5W RTU 1 GM/50 ML RTUPB IV ONE (05:09)
[2018-03-21] MEDS ORDERED: DEXTROSE 50%-WATER 25 GM/50 ML DISP.SYRIN IV PRN ×2 (05:41)
[2018-03-21] MEDS ORDERED: GLUCAGON,HUMAN RECOMB 1 MG INJ SUBCUT PRN (05:41)
[2018-03-21] MEDS ORDERED: ACETAMINOPHEN 325 MG TABLET PO PRN (05:41)
[2018-03-21] MEDS ORDERED: DEXTROSE 40% GEL 15 GM TUBE PO PRN ×2 (05:41)
[2018-03-21] MEDS ORDERED: ONDANSETRON HCL INJ/PF 4 MG/2 ML SDV IV PRN (05:41)
[2018-03-21] MEDS ORDERED: NORMAL SALINE 1000 ML 1,000 ML IV PRN (05:46)
[2018-03-21] MEDS ORDERED: MORPHINE SULFATE 10 MG/ML INJ IV PRN (05:48)
--- NOTE | 2018-03-21 05:58 | PDOC H&P ---
History of Present Illness Admission Date/PCP: 03/21/18 05:35 PA GIBSON MD History of Present Illness: DAMEON GARCIA is a 57 year old black female patient with past medical history of nephrolithiasis, bronchial asthma and rheumatoid arthritis presented with chief complaint of left lower quadrant pain. Patient reports this she woke up at 2 AM with colicky lower quadrant pain radiating to her back at about. Denies fever, chills, nausea, vomiting or diarrhea. She had CT scan of the abdomen and pelvis which shows 0.8 centimeter obstructing calculus in the proximal left ureter producing moderate left hydronephrosis. The on-call urologist to Dr. Huerta has been consulted and he scheduled her for cystoscopy and stent placement today. Past Medical History Pulmonary Medical History: Reports: Asthma Neurological Medical History: Reports: Migraine GI Medical History: Reports: Gastroesophageal Reflux Disease Musculoskeltal Medical History: Reports: Arthritis - Rheumatoid Past Surgical History Past Surgical History: Reports: Hysterectomy Social History Smoking Status: Never Smoker Frequency of Alcohol Use: None Drugs: None - Advance Directive Resuscitation Status: Full Code Family History Family History: None, Reviewed & Not Pertinent Parental Family History Reviewed: Yes Children Family History Reviewed: Yes Sibling(s) Family History Reviewed.: Yes Medication/Allergy Home Medications: Hydrocodone/Acetaminophen [Hydrocodon-Acetaminophen 5-325] 1 each PO Q4 #15 tablet 03/25/15 Hydrocodone/Acetaminophen [Imperial 5-325 mg Tablet] 1 tab PO Q4 PRN #16 tablet Ondansetron [Zofran Odt 4 mg Tablet] 1 tab PO Q4H PRN #15 tab.rapdis 09/18/15 Albuterol Sulfate [Albuterol Sulfate 2.5mg/3 mL] 1 vial IH Q4 PRN #50 vial 05/24 Albuterol Sulfate [Proair HFA] 1 - 2 puff IH Q4 PRN #1 inhaler 05/24/17 Prednisone [Deltasone 10 mg Tablet] 10 mg PO ASDIR PRN #21 tablet 05/24/17 Hydrocodone/Acetaminophen [Imperial 5-325 Tablet] 1 each PO ASDIR PRN #12 tablet Ondansetron [Zofran Odt 4 mg Tablet] 1 - 2 tab PO Q4HP PRN #10 tab.rapdis Promethazine HCl [Phenergan 25 mg Tablet] 25 - 50 mg PO ASDIR PRN #12 tablet 04/17 Tamsulosin HCl [Flomax 0.4 mg Cap.sr] 0.4 mg PO DAILY #7 cap.sr.24h 10/06/17 Morphine Sulfate [Morphine Ir 15 Mg Tablet] 15 mg PO Q4HP PRN #15 tablet Ondansetron [Zofran Odt 4 mg Tablet] 1 - 2 tab PO Q4H PRN #15 tab.rapdis Tamsulosin HCl [Flomax 0.4 mg Cap.sr] 0.4 mg PO DAILY #7 cap.sr.24h 02/05/18 Allergies/Adverse Reactions: oxycodone HCl [From Percocet] Allergy (Intermediate, Verified 03/21/18 03:31) rash Penicillins Allergy (Verified 03/21/18 03:31) escitalopram [From Lexapro] Adverse Reaction (Verified 03/21/18 03:31) venlafaxine [From Effexor] Adverse Reaction (Verified 03/21/18 03:31) Review of Systems Constitutional: PRESENT: as per HPI Ears: PRESENT: as per HPI Cardiovascular: PRESENT: as per HPI Respiratory: PRESENT: as per HPI Gastrointestinal: PRESENT: as per HPI Neurological: PRESENT: as per HPI Physical Exam Vital Signs: Temp Pulse Resp BP Pulse Ox 98.3 F 80 16 136/70 H 95 03/21/18 05:19 03/21/18 05:19 03/21/18 05:19 03/21/18 05:19 03/21/18 05:19 General appearance: PRESENT: mild distress Head exam: PRESENT: atraumatic, normocephalic Respiratory exam: PRESENT: clear to auscultation kaitlin. ABSENT: rales, rhonchi, wheezes Cardiovascular exam: PRESENT: RRR. ABSENT: diastolic murmur, rubs, systolic murmur Gentrourinary exam: PRESENT: other - Left lower quadrant tenderness Neurological exam: PRESENT: alert, awake, oriented to time, reflexes normal Psychiatric exam: PRESENT: appropriate affect, normal mood. ABSENT: homicidal ideation, suicidal ideation Results Impressions: Limited or Localized CT 03/21/18 03:35 IMPRESSION: 1. 0.8 cm obstructing calculus in the proximal left ureter producing moderate left hydronephrosis. 2. Diverticulosis without evidence of acute diverticulitis. 3. Hepatic steatosis. This exam was performed according to our departmental dose-optimization program, which includes automated exposure control, adjustment of the mA and/or kV according to patient size and/or use of iterative reconstruction technique. Assessment & Plan - Diagnosis (1) Hydronephrosis concurrent with and due to calculi of kidney and ureter Is this a current diagnosis for this admission?: Yes Plan: Patient has been started on Levaquin IV, cautious hydration with normal saline. Definitive management per neurologist. - Time Time Spent: 30 to 50 Minutes - Inpatient Certification Medical Necessity: Need Close Monitoring Due to Risk of Patient Decompensation, Need for IV Antibiotics
[2018-03-21] MEDS ORDERED: LEVOFLOXACIN 750 MG/D5W RTU 750 MG/150 ML RTUPB IV SCH (06:00)
[2018-03-21] MEDS ORDERED: LANSOPRAZOLE 30 MG TAB.RAP.DR PO SCH (06:00)
[2018-03-21 08:18] VITALS: BP 141/70
[2018-03-21] MEDS ORDERED: ENOXAPARIN SODIUM INJ 40 MG/0.4 ML DISP.SYRIN SUBCUT SCH (10:00)
--- NOTE | 2018-03-21 20:18 | PDOC DISCHARGE SUMMARY ---
General - Admit/Disc Date/PCP Admission Date/Primary Care Provider: 03/21/18 05:35 PA GIBSON MD Discharge Date: 03/21/18 - Discharge Diagnosis (1) Hydronephrosis concurrent with and due to calculi of kidney and ureter Is this a current diagnosis for this admission?: Yes (2) UTI (urinary tract infection) Is this a current diagnosis for this admission?: Yes - Additional Information Resuscitation Status: Full Code Home Medications: Amlodipine Besylate [Norvasc 5 mg Tablet] 5 mg PO DAILY 03/21/18 Levocetirizine Dihydrochloride [Xyzal] 5 mg PO DAILY 03/21/18 Paroxetine HCl [Paxil 20 mg Tablet] 20 mg PO DAILY 03/21/18 History of Present Illness History of Present Illness: DAMEON GARCIA is a 57 year old female Hospital Course Hospital Course: She was admitted overnight and was never evaluated by me she signed out AGAINST MEDICAL ADVICE before I saw her Physical Exam Vital Signs: Temp Pulse Resp BP Pulse Ox 97.6 F 72 16 141/70 H 100 03/21/18 08:05 03/21/18 08:05 03/21/18 08:05 03/21/18 08:05 03/21/18 08:05 Results Laboratory Results: Laboratory 03/21/18 03/21/18 03/21/18 03:25 03:25 03:25 WBC 7.1 RBC 4.93 Hgb 13.1 Hct 40.3 MCV 82 MCH 26.4 L MCHC 32.4 RDW 14.6 H Plt Count 181 Seg Neutrophils % 43.7 Lymphocytes % 40.4 Monocytes % 12.1 Eosinophils % 3.1 Basophils % 0.7 Absolute Neutrophils 3.1 Absolute Lymphocytes 2.9 Absolute Monocytes 0.9 Absolute Eosinophils 0.2 Absolute Basophils 0.1 Sodium 143.5 Potassium 3.8 Chloride 102 Carbon Dioxide 31 H Anion Gap 11 BUN 15 Creatinine 0.60 Est GFR ( Amer) > 60 Est GFR (Non-Af Amer) > 60 Glucose 112 H Calcium 9.8 Total Bilirubin 0.4 Direct Bilirubin 0.3 Neonat Total Bilirubin Not Reportable Neonat Direct Bilirubin Not Reportable Neonat Indirect Bili Not Reportable AST 30 ALT 53 H Alkaline Phosphatase 81 Total Protein 7.4 Albumin 4.3 Urine Color ANNA Urine Appearance CLEAR Urine pH 7.0 Ur Specific [place] 1.014 Urine Protein NEGATIVE Urine Glucose (UA) NEGATIVE Urine Ketones NEGATIVE Urine Blood SMALL H Urine Nitrite NEGATIVE Urine Bilirubin NEGATIVE Urine Urobilinogen NEGATIVE Ur Leukocyte Esterase LARGE H Urine WBC (Auto) 37 Urine RBC (Auto) 4 Urine Bacteria (Auto) 2+ Squamous Epi Cells Auto 5 Urine Mucus (Auto) RARE Urine Ascorbic Acid NEGATIVE Impressions: Limited or Localized CT 03/21/18 03:35 IMPRESSION: 1. 0.8 cm obstructing calculus in the proximal left ureter producing moderate left hydronephrosis. 2. Diverticulosis without evidence of acute diverticulitis. 3. Hepatic steatosis. This exam was performed according to our departmental dose-optimization program, which includes automated exposure control, adjustment of the mA and/or kV according to patient size and/or use of iterative reconstruction technique. Qualifiers - * PATIENT BEING DISCHARGED WITH ANY OF THE FOLLOWING DIAGNOSIS: No
== END 2018-03-21 11:39 | disposition left against medical advice (07) | DRG 690 ==
LOC: ER 02:34 → EH 05:35 → 3N 07:52
PROVIDERS: ADMIT Internal Medicine; ATTEND Internal Medicine
DX: N13.6 Pyonephrosis (principal); K57.90 Diverticulosis of intestine, part unspecified, without perforation or abscess without bleeding; K76.0 Fatty (change of) liver, not elsewhere classified; M06.9 Rheumatoid arthritis, unspecified; J45.909 Unspecified asthma, uncomplicated; G43.909 Migraine, unspecified, not intractable, without status migrainosus; K21.9 Gastro-esophageal reflux disease without esophagitis; Z90.710 Acquired absence of both cervix and uterus; Z79.899 Other long term (current) drug therapy; Z79.52 Long term (current) use of systemic steroids; Z88.8 Allergy status to other drugs, medicaments and biological substances; Z88.6 Allergy status to analgesic agent; Z91.010 Allergy to peanuts
CPT/HCPCS: 36415; 76380; 80053; 81001; 85025; 87040; 87086; 96374; 96375; 99285; J0696; J1885; J1956; J2270; J2405

== ENCOUNTER → 2018-06-27 | Outpatient (CLI) | payer BC | LOC: LAB 09:33 | PROVIDERS: ATTEND Specialist | DX: G62.9 Polyneuropathy, unspecified (principal); G25.81 Restless legs syndrome | CPT/HCPCS: 36415; 82728; 83036 ==

== ENCOUNTER → 2018-09-26 | Outpatient (CLI) | payer BC ==
--- NOTE | 2018-09-26 16:55 | WOMENS IMAGING REPORT ---
EXAM DESCRIPTION: 3D SCREENING MAMMO BILAT COMPLETED DATE/TIME: 09/26/2018 3:58 pm REASON FOR STUDY: BILATERAL SCREENING MAMMO 3D/Z12.31 Z12.31 ENCNTR SCREEN MAMMOGRAM FOR MALIGNANT NEOPLASM OF SAMANTHA COMPARISON: Multiple since 2008 TECHNIQUE: Standard craniocaudal and mediolateral oblique views of each breast recorded using digita l acquisition and breast tomosynthesis. LIMITATIONS: None. FINDINGS: No masses, calcifications or architectural distortion. No areas of suspicion. Read with the assistance of CAD. .[facility] - R2 Cenova Version 1.3 .[facility] - R2 Cenova Version 1.3 .[facility] - R2 Cenova Version 2.4 .[facility] [place] - R2 Cenova Version 2.4 .COUNT INCLUDES THE [facility] - R2 Payment Poster Version 9.2 IMPRESSION: NORMAL MAMMOGRAM. BIRADS 1. BREAST DENSITY: b. There are scattered areas of fibroglandular density. BIRAD: 1 NEGATIVE RECOMMENDATION: ROUTINE SCREENING Please continue yearly bilateral screening mammography/tomosynthesis in September 2019 COMMENT: The patient has been notified of the results by letter per SA requirements. Additional no tification policies are in place for contacting patient with suspicious or incomplete findings. Quality ID #[id number]: The [employer] recommends an annual screening mammogram for women aged 40 years or over. This facility utilizes a reminder system to ensure that all patients receive reminder letters, and/or direct phone calls for appointments. This includes reminders for routine scr eening mammograms, diagnostic mammograms, or other Breast Imaging Interventions when appropriate. Th is patient will be placed in the appropriate reminder system. The [employer] (ACR) has developed recommendations for screening MRI of the breast s in certain patient populations, to be used in conjunction with mammography. Breast MRI surveillanc e may be appropriate for women with more than 20% lifetime risk of developing breast cancer as deter mined by genetic testing, significant family history of the disease, or history of mantle radiation f or Hodgkins Disease. ACR Practice Guidelines 2008. DBT Technology DBT is a type of tomographic mammography. With conventional mammography, overlapping breast tissue ma y make lesions difficult to detect, even with good compression. DBT uses an x-ray tube that rotates a round the breast, taking images at different angles. These images are then combined to create thin sl ices of the breast that the radiologist can view as a 3D reconstruction. The [employer] unit can perform full-field digital mammograms (2D imaging); or DBT (3D imaging); or both, in a combination mode that quickly performs both the mammogram and the tomosynthesis scan while the breast is still compressed. PQRS 6045F: Fluoroscopic imaging is not utilized for breast tomosynthesis. TECHNICAL DOCUMENTATION: FINDING NUMBER: (1) ASSESSMENT: (1) JOB ID: [id number] [employer]- All Rights Reserved Reading location - IP/workstation name: [email or web address]-COUNT INCLUDES THE [facility]
== END ==
LOC: WI 15:05
PROVIDERS: ATTEND Internal Medicine
DX: Z12.31 Encounter for screening mammogram for malignant neoplasm of breast (principal)
CPT/HCPCS: 77063; 77067

== ENCOUNTER → 2018-12-08 | Outpatient (CLI) | payer BC | LOC: OD 10:07 | PROVIDERS: ATTEND Otolaryngology | DX: J32.9 Chronic sinusitis, unspecified (principal) | CPT/HCPCS: 36415; 82785; 86003 ==

== ENCOUNTER → 2018-12-23 | Outpatient (CLI) | payer BC ==
--- NOTE | 2018-12-23 17:05 | RADIOLOGY REPORT (SQ) ---
EXAM DESCRIPTION: CT SINUSES FOR ENT COMPLETED DATE/TIME: 12/23/2018 4:32 pm REASON FOR STUDY: J32.9 CHRONIC SINUSITIS, UNSPECIFIED J32.9 CHRONIC SINUSITIS, UNSPECIFIED COMPARISON: None. TECHNIQUE: Noncontrast scanning through the paranasal sinuses using bone algorithm. Reconstructed MPR images reviewed. All images stored on PACS. Images acquired for image guided surgery. All CT scanners at this facility use dose modulation, iterative reconstruction, and/or weight based d osing when appropriate to reduce radiation dose to as low as reasonably achievable (ALARA). [facility]: Dose Right [facility]: CareDose [facility]: Dose Right [facility]: Teradose 4D [facility]: Visualnet RADIATION DOSE: 47 mGy. FINDINGS: NASAL PASSAGES: Clear. No polyps or masses. OSTEOMEATAL UNITS AND NASOFRONTAL DUCTS: Patent. There are bilateral agger nasi cells. MAXILLARY SINUSES: Minimal mucous membrane thickening floor right maxillary sinus. Maxillary sinus ou tlets are patent bilaterally, there is narrowing on the right related to rightward nasal septal devia tion on coronal image 20. ETHMOID SINUSES: Well-pneumatized and clear. SPHENOID SINUSES: Well-pneumatized and clear. No sphenoethmoid air cells or pneumatized pterygoid rec ess. No pneumatized dorsal sella. FRONTAL SINUSES: Well-pneumatized and clear. MASTOID AIR CELLS: Clear. ORBITS: Normal and symmetrical. NASAL SEPTUM: Rightward nasal septal deviation with moderate size right nasal septal spur on coronal image 22 TEMPOROMANDIBULAR JOINTS: Normal. TURBINATES: No pneumatized turbinates. MUCOPERIOSTEAL THICKENING: No. MUCOCELE: No. OTHER: No other significant findings. IMPRESSION: Mucous membrane thickening right maxillary sinus floor. Mild narrowing of the right max illary sinus outlet due to rightward nasal septal deviation with bony spur TECHNICAL DOCUMENTATION: JOB ID: [id number] Quality ID # [id number]: Final reports with documentation of one or more dose reduction techniques (e.g., Au tomated exposure control, adjustment of the mA and/or kV according to patient size, use of iterative reconstruction technique) 2010 [employer] All Rights Reserved Reading location - IP/workstation name: [email or web address]
== END ==
LOC: RAD 16:15
PROVIDERS: ATTEND Otolaryngology
DX: J32.9 Chronic sinusitis, unspecified (principal)
CPT/HCPCS: 70486

== ENCOUNTER 2018-12-28 08:45 | Emergency (ER) | payer BC ==
[2018-12-28] MEDS ORDERED: LORAZEPAM 1 MG TABLET PO ONE (09:46)
--- NOTE | 2018-12-28 09:49 | ER Document Report ---
ED Medical Screen (RME) - General Chief Complaint: Chest Pain Stated Complaint: CHEST PAIN, ARM NUMBNESS, FACIAL PAIN Time Seen by Provider: 12/28/18 09:41 Primary Care Provider: VANESSA EUGENE MD [Primary Care Provider] - Follow up as needed Notes: Chief complaint: Numbness History of complain:( obtained from----patient) 58 years old female with a history of left facial dental/ENT chronic pain, under a lot of stress due to domestic issues. Presents today with left-sided numbness involving the whole body, chest pain substernal, and left arm numbness and tingling sensation for the last 3 days. The left-sided numbness involving the entire face and legs are going on for a month. Denies any headache. Denies any focal weakness. Denies any other constitutional symptoms. PHYSICAL EXAMINATION: GENERAL: Well-appearing, well-nourished and in no acute distress. Appears anxious HEAD: Atraumatic, normocephalic. EYES: Pupils equal round and reactive to light, extraocular movements intact, conjunctiva are normal. ENT: Nares patent, oropharynx clear without exudates. Moist mucous membranes. NECK: Normal range of motion, supple without lymphadenopathy LUNGS: Breath sounds clear to auscultation bilaterally and equal. No wheezes rales or rhonchi. HEART: Regular rate and rhythm without murmurs ABDOMEN: Soft, nontender, nondistended abdomen. No guarding, no rebound. No masses appreciated. NEUROLOGICAL: Alert and oriented. Normal speech, normal gait. Dictation was performed using [employer] voice recognition software TRAVEL OUTSIDE OF THE [place] IN LAST 30 DAYS: No - Related Data Allergies/Adverse Reactions: oxycodone HCl [From Percocet] Allergy (Intermediate, Verified 12/28/18 08:46) rash escitalopram [From Lexapro] Adverse Reaction (Verified 12/28/18 08:46) venlafaxine [From Effexor] Adverse Reaction (Verified 12/28/18 08:46) Past Medical History Pulmonary Medical History: Reports: Hx Asthma Neurological Medical History: Reports: Hx Migraine Renal/ Medical History: Reports: Hx Kidney Stones. Denies: Hx Peritoneal Dialysis GI Medical History: Reports: Hx Gastroesophageal Reflux Disease Musculoskeltal Medical History: Reports Hx Arthritis - Rheumatoid Psychiatric Medical History: Denies: Hx Depression Past Surgical History: Reports: Hx Gynecologic Surgery - BSO, Hx Hysterectomy - Immunizations Hx Diphtheria, Pertussis, Tetanus Vaccination: Yes History of Influenza Vaccine for 08/2017 - 12/2017 Season: Yes Physical Exam - Vital signs Vitals: Temp Pulse Resp BP Pulse Ox 98.5 F 87 16 143/76 H 100 12/28/18 09:01 12/28/18 09:01 12/28/18 09:01 12/28/18 09:01 12/28/18 09:01 Course - Vital Signs Vital signs: Temp Pulse Resp BP Pulse Ox 98.5 F 87 16 143/76 H 100 12/28/18 09:01 12/28/18 09:01 12/28/18 09:01 12/28/18 09:01 12/28/18 09:01 Doctor's Discharge - Discharge Referrals: VANESSA EUGENE MD [Primary Care Provider] - Follow up as needed
[2018-12-28 10:14] LABS: ABSOLUTE EOSINOPHILS # (AUTO) 0.1 10^3/uL (0.0-0.6); ABSOLUTE LYMPHOCYTES (AUTO) 1.9 10^3/uL (0.5-4.7); ABSOLUTE MONOCYTES (AUTO) 0.6 10^3/uL (0.1-1.4); ABSOLUTE NEUT (AUTO) 2.6 10^3/uL (1.7-8.2); BASOPHILS % (AUTO) 0.7 % (0-2); EOSINOPHILS % (AUTO) 2.6 % (0-6); HEMATOCRIT 37.9 % (36.0-47.0); HEMOGLOBIN 12.7 g/dL (12.0-15.5); LYMPHOCYTES % (AUTO) 35.9 % (13-45); MEAN CORPUSCULAR HEMOGLOBIN 27.4 pg (27.0-33.4); MEAN CORPUSCULAR HGB CONC 33.4 g/dL (32.0-36.0); MEAN CORPUSCULAR VOLUME 82 fl (80-97); MONOCYTES % (AUTO) 11.1 % (3-13); PLATELET COUNT 165 10^3/uL (150-450); RED BLOOD COUNT 4.62 10^6/uL (3.72-5.28); RED CELL DISTRIBUTION WIDTH 14.8 % (11.5-14.0); SEGMENTED NEUTROPHILS % (AUTO) 49.7 % (42-78); TOTAL CELLS COUNTED % (AUTO) 100 %; WHITE BLOOD COUNT 5.2 10^3/uL (4.0-10.5)
--- NOTE | 2018-12-28 10:25 | EKG REPORT ---
SEVERITY:- ABNORMAL ECG - SINUS RHYTHM PROBABLE LEFT ATRIAL ABNORMALITY LEFT AXIS DEVIATION LEFT VENTRICULAR HYPERTROPHY : Confirmed by: Ruben Stout 28-Dec-2018 10:24:49
--- NOTE | 2018-12-28 10:43 | RADIOLOGY REPORT (SQ) ---
EXAM DESCRIPTION: CHEST SINGLE VIEW COMPLETED DATE/TIME: 12/28/2018 10:32 am REASON FOR STUDY: Chest pain COMPARISON: 03/24/2015 EXAM PARAMETERS: NUMBER OF VIEWS: One view. TECHNIQUE: Single frontal radiographic view of the chest acquired. RADIATION DOSE: NA LIMITATIONS: None. FINDINGS: LUNGS AND PLEURA: No opacities, masses or pneumothorax. No pleural effusion. MEDIASTINUM AND HILAR STRUCTURES: No masses. Contour normal. HEART AND VASCULAR STRUCTURES: Heart normal in size. Normal vasculature. BONES: No acute findings. HARDWARE: None in the chest. OTHER: No other significant finding. IMPRESSION: NO ACUTE RADIOGRAPHIC FINDING IN THE CHEST. TECHNICAL DOCUMENTATION: JOB ID: [id number] [employer]- All Rights Reserved Reading location - IP/workstation name: [email or web address]
[2018-12-28 10:44] LABS: ALANINE AMINOTRANSFERASE 45 U/L (9-52); ALBUMIN 4.4 g/dL (3.5-5.0); ALKALINE PHOSPHATASE 81 U/L (38-126); ANION GAP 9 (5-19); ASPARTATE AMINO TRANSFERASE 38 U/L (14-36); BILIRUBIN,DIRECT 0.3 mg/dL (0.0-0.4); BILIRUBIN,TOTAL 0.5 mg/dL (0.2-1.3); BLOOD UREA NITROGEN 16 mg/dL (7-20); CALCIUM 9.7 mg/dL (8.4-10.2); CARBON DIOXIDE 30 mmol/L (22-30); CHLORIDE 105 mmol/L (98-107); CREATINE KINASE 108 U/L (30-135); GLUCOSE 94 mg/dL (75-110); POTASSIUM 4.4 mmol/L (3.6-5.0); SODIUM 143.6 mmol/L (137-145); TOTAL PROTEIN 7.2 g/dL (6.3-8.2)
[2018-12-28 11:01] LABS: CREATINE KINASE MB 2.08 ng/mL (<4.55)
[2018-12-28 11:02] LABS: TROPONIN I < 0.012 ng/mL
[2018-12-28 15:06] VITALS: BP 142/83
--- NOTE | 2018-12-28 15:27 | ER Document Report ---
ED General - General Chief Complaint: Chest Pain Stated Complaint: CHEST PAIN, ARM NUMBNESS, FACIAL PAIN Time Seen by Provider: 12/28/18 09:41 Primary Care Provider: VANESSA EUGENE MD [ACTIVE STAFF] - Follow up as needed TRAVEL OUTSIDE OF THE [place] IN LAST 30 DAYS: No - HPI Notes: Patient is a 58-year-old female with a history of RA, anxiety, and vertigo that presents to the emergency department for chief complaint of chest pain x3-4 days. Patient describes the chest pain as a pressure and states that it was intermittent until today where it became a constant pain. She also complains of a new left-sided headache, shortness of breath, and lightheadedness. She admits that she has been under a lot of stress lately with her current home situation. She has a history of panic attacks, but states that her recent episodes are not similar. Patient also reports left extremity numbness and tingling that has been ongoing for the past year. She denies any change in her left-sided numbness today. Patient does have chronic sinusitis and is scheduled to see ENT on January 01. She reports pressure on the left side of her face which is unchanged today. She denies abdominal pain, dizziness, fever, chills, dysphagia, and vision changes. Past Medical History: Rheumatoid arthritis, anxiety, vertigo Past Surgical History: Reviewed in chart Social History: Reviewed in chart Family History: Reviewed and noncontributory for presenting illness Allergies: Reviewed, see documented allergy list. REVIEW OF SYSTEMS: CONSTITUTIONAL : No fever No chills No diaphoresis No recent illness EENT: No vision changes Facial pressure No congestion No sore throat CARDIOVASCULAR: chest pain No palpitations RESPIRATORY: No shortness of breath No cough No difficulty breathing GASTROINTESTINAL: No abdominal pain No nausea No vomiting No diarrhea GENITOURINARY: No dysuria No hematuria No difficulty urinating MUSCULOSKELETAL: No back pain No leg pain No arm pain SKIN: No rashes No lesions LYMPHATIC: No swollen, enlarged glands. NEUROLOGICAL: No lightheadedness No headache No weakness paresthesias PSYCHIATRIC: anxiety No depression PHYSICAL EXAMINATION: Vital signs reviewed, nursing noted reviewed. GENERAL: Well-appearing, well-nourished and in no acute distress. HEAD: Atraumatic, normocephalic. EYES: Eyes appear normal, extraocular movements intact, sclera anicteric, conjunctiva are normal. ENT: Left maxillary sinus tenderness to percussion, nares patent, oropharynx clear without exudates. Moist mucous membranes. NECK: Normal range of motion, supple without lymphadenopathy LUNGS: Breath sounds clear to auscultation bilaterally and equal. No wheezes rales or rhonchi. HEART: Regular rate and rhythm without murmurs ABDOMEN: Soft, nontender, normoactive bowel sounds. No rebound, guarding, or rigidity. No masses appreciated. EXTREMITIES: Nontender, good range of motion, no pitting or edema. NEUROLOGICAL: No focal neurological deficits. Moves all extremities spontaneously Motor and sensory grossly intact on exam. PSYCH: Normal mood, normal affect. SKIN: Warm, Dry, normal turgor, no rashes or lesions noted on exposed skin - Related Data Allergies/Adverse Reactions: oxycodone HCl [From Percocet] Allergy (Intermediate, Verified 12/28/18 08:46) rash escitalopram [From Lexapro] Adverse Reaction (Verified 12/28/18 08:46) venlafaxine [From Effexor] Adverse Reaction (Verified 12/28/18 08:46) Past Medical History - Social History Smoking Status: Never Smoker Chew tobacco use (# tins/day): No Drug Abuse: None Family History: Reviewed & Not Pertinent Patient has suicidal ideation: No Patient has homicidal ideation: No Pulmonary Medical History: Reports: Hx Asthma Neurological Medical History: Reports: Hx Migraine Renal/ Medical History: Reports: Hx Kidney Stones. Denies: Hx Peritoneal Dialysis GI Medical History: Reports: Hx Gastroesophageal Reflux Disease Musculoskeletal Medical History: Reports Hx Arthritis - Rheumatoid Psychiatric Medical History: Denies: Hx Depression Past Surgical History: Reports: Hx Gynecologic Surgery - BSO, Hx Hysterectomy - Immunizations Hx Diphtheria, Pertussis, Tetanus Vaccination: Yes Physical Exam - Vital signs Vitals: Temp Pulse Resp BP Pulse Ox 98.5 F 87 16 143/76 H 100 12/28/18 09:01 12/28/18 09:01 12/28/18 09:01 12/28/18 09:01 12/28/18 09:01 Course - Re-evaluation Re-evalutation: 12/28/18 15:27 Vitals reviewed. Nursing notes reviewed. Patient had received Ativan in triage. She took 6 baby aspirin prior to coming in the emergency room therefore aspirin not given in the ED. Patient has a heart score of 2. Her initial troponin and repeat troponin are unremarkable. EKG shows no acute ischemic changes. Her chest pain is now completely resolved. I do not feel her symptoms are related to acute ACS. I did advise her to attempt to destress her home living situation and follow closely with her primary care doctor. She had a cardiac stress test done 1 year ago that was normal. I advised that if her chest pain continues she should have repeat cardiac stress test performed or return to the emergency room for further evaluation. Patient's left-sided paresthesias are chronic and unchanged. She states she is not here for her left-sided paresthesias. Her facial tenderness and chronic sinusitis is being evaluated by ENT on January 01 and further workup not indicated in the ER. I did review a recent CT of her sinuses which showed right sinusitis. With her being afebrile with no sepsis or leukocytosis antibiotics are not currently indicated for her sinusitis. Patient will be discharged home in stable condition with close follow-up by her PCP and ENT office Laboratory 12/28/18 12/28/18 12/28/18 10:00 10:00 10:00 WBC 5.2 RBC 4.62 Hgb 12.7 Hct 37.9 MCV 82 MCH 27.4 MCHC 33.4 RDW 14.8 H Plt Count 165 Seg Neutrophils % 49.7 Lymphocytes % 35.9 Monocytes % 11.1 Eosinophils % 2.6 Basophils % 0.7 Absolute Neutrophils 2.6 Absolute Lymphocytes 1.9 Absolute Monocytes 0.6 Absolute Eosinophils 0.1 Absolute Basophils 0.0 Sodium 143.6 Potassium 4.4 Chloride 105 Carbon Dioxide 30 Anion Gap 9 BUN 16 Creatinine 0.63 Est GFR ( Amer) > 60 Est GFR (Non-Af Amer) > 60 Glucose 94 Calcium 9.7 Total Bilirubin 0.5 Direct Bilirubin 0.3 Neonat Total Bilirubin Not Reportable Neonat Direct Bilirubin Not Reportable Neonat Indirect Bili Not Reportable AST 38 H ALT 45 Alkaline Phosphatase 81 Creatine Kinase 108 CK-MB (CK-2) 2.08 Troponin I < 0.012 Total Protein 7.2 Albumin 4.4 12/28/18 13:45 WBC RBC Hgb Hct MCV MCH MCHC RDW Plt Count Seg Neutrophils % Lymphocytes % Monocytes % Eosinophils % Basophils % Absolute Neutrophils Absolute Lymphocytes Absolute Monocytes Absolute Eosinophils Absolute Basophils Sodium Potassium Chloride Carbon Dioxide Anion Gap BUN Creatinine Est GFR ( Amer) Est GFR (Non-Af Amer) Glucose Calcium Total Bilirubin Direct Bilirubin Neonat Total Bilirubin Neonat Direct Bilirubin Neonat Indirect Bili AST ALT Alkaline Phosphatase Creatine Kinase CK-MB (CK-2) Troponin I < 0.012 Total Protein Albumin Chest X-Ray 12/28/18 09:46 IMPRESSION: NO ACUTE RADIOGRAPHIC FINDING IN THE CHEST. - Vital Signs Vital signs: Temp Pulse Resp BP Pulse Ox 98.5 F 87 20 142/83 H 99 12/28/18 09:01 12/28/18 09:01 12/28/18 15:01 12/28/18 15:00 12/28/18 15:01 - Laboratory Result Diagrams: 12/28/18 10:00 12/28/18 10:00 Laboratory results interpreted by me: 12/28/18 12/28/18 10:00 10:00 RDW 14.8 H AST 38 H Discharge - Discharge Clinical Impression: Chest pain Qualifiers: Chest pain type: unspecified Qualified Code(s): R07.9 - Chest pain, unspecified Condition: Stable Disposition: HOME, SELF-CARE Instructions: Chest Pain of Unclear Cause ([facility]) Additional Instructions: Please return to the emergency department if you have any worsening, or concern of your symptoms. Please return to the emergency department if you develop chest pain, difficulty breathing, severe abdominal pain, or ongoing vomiting. Please follow-up with your primary care physician in 2-3 days and any other recommended physicians. If prescribed, take all medications as directed. If you have any questions or concerns do not hesitate to return the emergency department for evaluation. Talk to your primary care provider about getting a cardiac stress test in the next 1 week Forms: Return to Work Referrals: VANESSA EUGENE MD [ACTIVE STAFF] - Follow up in 3-5 days
== END 2018-12-28 15:50 | disposition home or self-care (01) ==
LOC: ER 08:45
DX: R07.9 Chest pain, unspecified (principal); J32.9 Chronic sinusitis, unspecified; F41.9 Anxiety disorder, unspecified; J45.909 Unspecified asthma, uncomplicated; R51 Headache; R06.02 Shortness of breath; R42 Dizziness and giddiness; R20.2 Paresthesia of skin; R20.0 Anesthesia of skin; Z88.5 Allergy status to narcotic agent
CPT/HCPCS: 36415; 71045; 80053; 82550; 82553; 84484; 85025; 93005; 93010; 99285

== ENCOUNTER 2019-01-31 09:22 | Day surgery (SDC) | payer BC ==
[~2019-01-31 09:22] MED LIST: BACITRACIN ZINC OINTMENT 15 GM ONE; CEFAZOLIN 2 GM/D5W RTU 2 GM/50 ML RTUPB IV PRN; COCAINE HCL 4% TOPICAL SOLN 4 ML ONE; LIDOCAINE 2%/EPINEPHRINE INJ 1.7 ML CARTRIDGE ONE; LIDOCAINE 2%/EPINEPHRINE INJ 20 ML VIAL ONE
[2019-01-31] MEDS ORDERED: FENTANYL CITRATE INJ/PF 100 MCG/2 ML AMPUL ONE (12:11)
[2019-01-31] MEDS ORDERED: MIDAZOLAM HCL SYRUP 10 MG/5 ML UDC ONE (12:11)
[2019-01-31] MEDS ORDERED: ONDANSETRON HCL INJ/PF 4 MG/2 ML SDV ONE (12:11)
[2019-01-31] MEDS ORDERED: PROPOFOL INJ 200 MG/20 ML VIAL IV ONE (12:12)
[2019-01-31] MEDS ORDERED: SUCCINYLCHOLINE CHLORIDE INJ 200 MG/10 ML VIAL ONE (12:12)
[2019-01-31] MEDS ORDERED: DEXAMETHASONE SOD PHOS INJ 10 MG/1 ML VIAL ONE (12:12)
[2019-01-31] MEDS ORDERED: MIDAZOLAM 2 MG/2 ML INJ ONE (12:13)
[2019-01-31] MEDS ORDERED: LIDOCAINE 2% INJ (20 MG/ML) 20 ML MDV ONE (12:23)
[2019-01-31] MEDS: COCAINE HCL 4% TOPICAL SOLN 4 ML ONE ×2 (13:20→13:24)
[2019-01-31] MEDS ORDERED: EPHEDRINE SULFATE INJ 50 MG/1 ML AMPULE ONE (13:40)
[2019-01-31] MEDS ORDERED: ACETAMINOPHEN 1,000 MG/100 ML RTUPB IV ONE (13:40)
[2019-01-31] MEDS ORDERED: SUGAMMADEX SODIUM 200 MG/2 ML SDV IV ONE (13:56)
[2019-01-31] MEDS: OXYMETAZOLINE HCL 0.05% NASAL SPRAY 15 ML BOTTLE ONE ×2 (14:00→14:05)
[2019-01-31] MEDS: TRIAMCINOLONE ACETONIDE INJ 40 MG/1 ML VIAL ONE ×2 (14:00→14:05)
--- NOTE | 2019-02-02 10:20 | [facility] OPERATIVE REPORT E ---
[facility] Operative Report NAME: DAMEON GARCIA AGE: 58Y DATE OF SURGERY: 01/31/2019 ROOM: HISTORY: A 58-year-old female with a history of chronic sinusitis and left facial pain/pressure. A CT scan demonstrated a compromised ostiomeatal complex on the left side. The patient's main complaint is on the left side. She presents today for a left endoscopic sinus surgery. Informed consent was obtained from the patient. PREOPERATIVE DIAGNOSES: 1. CHRONIC SINUSITIS LEFT SIDE. 2. LEFT-SIDED FACIAL PAIN/PRESSURE. 3. LEFT INFERIOR TURBINATE HYPERTROPHY. POSTOPERATIVE DIAGNOSES: 1. CHRONIC SINUSITIS LEFT SIDE. 2. LEFT-SIDED FACIAL PAIN/PRESSURE. 3. LEFT INFERIOR TURBINATE HYPERTROPHY. OPERATION: 1. DIAGNOSTIC NASAL ENDOSCOPY. 2. LEFT MAXILLARY ANTROSTOMY. 3. LEFT ANTERIOR ETHMOIDECTOMY. 4. LEFT INFERIOR TURBINOPLASTY (INTRAMURAL CAUTERIZATION). SURGEON: VANESSA EUGENE MD ANESTHESIA: General by endotracheal intubation. PROCEDURE: After receiving informed consent from the patient, she was taken to the operating room and placed supine on the operating table. After successful induction and intubation by Anesthesia, pledgets soaked in 4% cocaine were placed into each nasal cavity for approximately 5 minutes, after which they were withdrawn. The nasal septum and inferior turbinates and middle turbinate on the left side were injected with 2% Xylocaine with [id number] epinephrine. Pledgets were placed. The patient was prepped and draped in sterile fashion. Pledgets were removed. Next, the image guidance fusion Earnest system was calibrated to the patient and was found to be functioning. Pledgets were then removed from the left side. Nasal endoscope was inserted into the left nasal cavity, identified the middle turbinate. The middle turbinate was then medialized using a freer elevator. was placed into the infundibulum and the uncinate process was retracted anteriorly. A circular knife was used to make an incision and the uncinate process was removed using Blakesley forceps and a microdebrider. Next, a back biter was used to remove the inferior portion of the uncinate process. Next, olive tip sucker was then used to gain entrance into the maxillary sinus. The maxillary antrostomy was then widened in an anterior, inferior, posterior direction. The mucosa was identified inside the maxillary sinuses and found to have osteitic changes. The mucosa did not have that normal yellowish glistening appearance and looked whitish to grayish in color. Next, an anterior ethmoidectomy was performed using a Blakesley forceps. Once this was done, the attention was then directed to the inferior turbinate, where the unit placed on 10 was used to perform intramural cauterization, and then the inferior turbinate was medialized and lateralized. The septal mucosa along with the medial surface of the middle turbinate was abrased using a upper sioux knife to allow adhesion of the middle turbinate to the septum. Absorbable packing was then placed into the middle meatus and this packing was injected with Kenalog 40. The patient was given back to Anesthesia, who successfully extubated the patient without any complications. The estimated blood loss was about 20 mL. Fluids: 600 mL crystalloid. The patient was then transferred to the post anesthesia care unit extubated, with spontaneous respirations. No complications. DICTATING PHYSICIAN: VANESSA EUGENE M.D. [id number] PHY#: [id number] ID: [id number] JOB#: [id number] ACCT: [id number] cc:VANESSA EUGENE MD >
== END 2019-01-31 16:15 | disposition home or self-care (01) ==
LOC: SC 09:22
PROVIDERS: ATTEND Otolaryngology
DX: J32.9 Chronic sinusitis, unspecified (principal); J34.3 Hypertrophy of nasal turbinates; R51 Headache; I10 Essential (primary) hypertension; J45.909 Unspecified asthma, uncomplicated; Z79.82 Long term (current) use of aspirin; Z79.51 Long term (current) use of inhaled steroids; Z79.899 Other long term (current) drug therapy
CPT/HCPCS: 31256; 31254; 30802; C1751; J2250; J3490 ×7; J3010; J0330; J2405; J2704; J1100; J0690; J0131; 160

== ENCOUNTER 2019-02-09 21:01 | Emergency (ER) | payer BC ==
--- NOTE | 2019-02-09 21:45 | RADIOLOGY REPORT (SQ) ---
EXAM DESCRIPTION: Left wrist RadLex: XR WRIST 3 OR MORE VIEWS Views: 3 CLINICAL HISTORY: 58 years Female, pain COMPARISON: None. FINDINGS: Negative for acute fracture, dislocation, or radiopaque foreign body. There are chronic degenerative changes of the 1st CMC joint, with joint space narrowing and reactive osteophyte formation. IMPRESSION: 1. No acute findings. 2. 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
--- NOTE | 2019-02-09 21:48 | RADIOLOGY REPORT (SQ) ---
EXAM DESCRIPTION: XR KNEE 4 OR MORE VIEWS COMPLETED DATE/TME: 02/09/2019 00:00 CLINICAL HISTORY: 58 years, Female, pain Findings: Bony alignment is anatomic. No fracture or dislocation. No significant joint effusion. Soft tissues are unremarkable. IMPRESSION: No fracture.
[2019-02-09 22:02] VITALS: BP 128/91
--- NOTE | 2019-02-10 00:58 | ER Document Report ---
ED Fall - General Chief Complaint: Wrist Injury Stated Complaint: FALL/FACE PAIN Time Seen by Provider: 02/10/19 00:11 Primary Care Provider: PA GIBSON MD [Primary Care Provider] - Follow up as needed Mode of Arrival: Ambulatory Information source: Patient Notes: Patient is a 58-year-old female comes emergency room complaining of having an sustaining a trip and fall tonight at home. She states she did this approximately 7 PM tonight and she is complaining of left wrist pain, left knee pain, and facial pain. Patient states that she is got puppies in the house and she had rolled up a runner carpet so they would not dirty it and she forgot that she had a rolled up and tripped over falling down and hitting her face on the tile floor reaching out with her hand to stop her fall and landing on her left knee while in process. She denies any loss of consciousness this was witnessed by her who said that she did not lose consciousness. Patient is concer jordyn because she had sinus surgery done on the second and she did hit the left side of her face and she was concerned that this might have hurt that surgery. Again she had no loss of consciousness no nausea or vomiting and the pain in the left wrist and knee is minimal since she is ambulatory and using the hand as well. TRAVEL OUTSIDE OF THE [place] IN LAST 30 DAYS: No - HPI Occurred: This evening Where: Home Context: Tripped Associated symptoms: denies: Lost consciousness, Dazed/confused Location of injury/pain: Knee, Wrist Quality of pain: Sharp Severity: Mild Pain Level: 2 - Related data Allergies/Adverse Reactions: oxycodone HCl [From Percocet] Allergy (Intermediate, Verified 01/24/19 14:10) rash escitalopram [From Lexapro] Adverse Reaction (Verified 01/24/19 14:10) venlafaxine [From Effexor] Adverse Reaction (Verified 01/24/19 14:10) Past Medical History - General Information source: Patient - Social History Smoking Status: Never Smoker Cigarette use (# per day): No Chew tobacco use (# tins/day): No Smoking Education Provided: No Frequency of alcohol use: None Drug Abuse: None Lives with: Family Family History: Reviewed & Not Pertinent Patient has suicidal ideation: No Patient has homicidal ideation: No - Past Medical History Cardiac Medical History: Reports: Hx Hypertension Denies: Hx Heart Attack Pulmonary Medical History: Reports: Hx Asthma Neurological Medical History: Reports: Hx Migraine. Denies: Hx Cerebrovascular Accident, Hx Seizures Renal/ Medical History: Reports: Hx Kidney Stones. Denies: Hx Peritoneal Dialysis GI Medical History: Reports: Hx Gastroesophageal Reflux Disease. Denies: Hx Hepatitis, Hx Hiatal Hernia, Hx Ulcer Musculoskeletal Medical History: Reports Hx Arthritis - Rheumatoid Psychiatric Medical History: Denies: Hx Depression Infectious Medical History: Denies: Hx Hepatitis Past Surgical History: Reports: Hx Gynecologic Surgery - BSO, Hx Hysterectomy. Denies: Hx Mastectomy, Hx Open Heart Surgery - Immunizations Hx Diphtheria, Pertussis, Tetanus Vaccination: Yes Review of Systems - Review of Systems Constitutional: No symptoms reported EENT: No symptoms reported Cardiovascular: No symptoms reported Respiratory: No symptoms reported Gastrointestinal: No symptoms reported Genitourinary: No symptoms reported Female Genitourinary: No symptoms reported Musculoskeletal: See HPI, Joint pain, Muscle pain Skin: No symptoms reported Hematologic/Lymphatic: No symptoms reported Neurological/Psychological: No symptoms reported -: Yes All other systems reviewed and negative Physical Exam - Vital signs Vitals: Temp Pulse Resp BP Pulse Ox 98.0 F 73 20 128/91 H 99 02/09/19 22:00 02/09/19 22:00 02/09/19 22:00 02/09/19 22:00 02/09/19 22:00 Interpretation: Hypertensive - Notes Notes: PHYSICAL EXAMINATION: GENERAL: Well-appearing, well-nourished and in no acute distress. HEAD:, normocephalic. Examination patient's face shows that she has some mild swelling along the left lateral jawline no discoloration no abrasions minimal swelling mild tenderness to palpation but no apparent fracture as far as pain discomfort or movement of her jaw. EYES: Pupils equal round and reactive to light, extraocular movements intact, conjunctiva are normal. ENT: Nares patent, oropharynx clear without exudates. Moist mucous membranes. NECK: Normal range of motion, supple without lymphadenopathy LUNGS: Breath sounds clear to auscultation bilaterally and equal. No wheezes rales or rhonchi. HEART: Regular rate and rhythm without murmurs ABDOMEN: Soft, nontender, nondistended abdomen. No guarding, no rebound. No masses appreciated. 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 Discoloration is still present. Patient has good cap refill in the nailbeds of the fingers of the left hand. Examination of patient's left knee shows there to be some discoloration like a mild ecchymosis just below the patella itself on or near the tibial plateau area. Patient has full flexion and extension with no difficulties. She has good popliteal pulse good dorsalis pedal pulse she has good extension against resistance. Patient also has good rotation at the knee. NEUROLOGICAL: Cranial nerves grossly intact. Normal speech, normal gait. Normal sensory, motor exams PSYCH: Normal mood, normal affect. SKIN: Warm, Dry, normal turgor, no rashes or lesions noted. Course - Re-evaluation Re-evalutation: 02/10/19 01:10 I did offer patient the opportunity to have a CT of her head face and neck however she refused to do so. I do not blame her at this point is been quite a while since the original injury went when she first got here she was devastated because she had surgery on her nose and the sinuses on the second and she thought that she may have injured that surgery process. So she was offered both though there was no witnessed LOC patient decided that she wanted to go home instead. - Vital Signs Vital signs: Temp Pulse Resp BP Pulse Ox 98.0 F 73 20 128/91 H 99 02/09/19 22:00 02/09/19 22:00 02/09/19 22:00 02/09/19 22:00 02/09/19 22:00 Procedures - Immobilization Left Wrist Time completed: :11 Pre-Proc Neuro Vasc Exam: Normal Immobilizer type: Cock-up Performed by: PCT Post-Proc Neuro Vasc Exam: Normal Alignment checked and good: Yes Discharge - Discharge Clinical Impression: Sprain of left wrist Qualifiers: Encounter type: initial encounter Qualified Code(s): S63.502A - Unspecified sprain of left wrist, initial encounter Contusion of left knee Qualifiers: Encounter type: initial encounter Qualified Code(s): S80.02XA - Contusion of left knee, initial encounter Contusion of face Qualifiers: Encounter type: initial encounter Qualified Code(s): S00.83XA - Contusion of other part of head, initial encounter Condition: Good Disposition: HOME, SELF-CARE Instructions: Wrist Sprain ([facility]), Contusion ([facility]) Additional Instructions: Ibuprofen 2-3 times a day for aches pains and swelling. Tylenol if you want to alternate the 2 is okay. Ice to the every thing that hurts 3 times a day including her neck back or whatever may be sore tomorrow. Use the splint for the next 4-5 days would use it even when I am sleeping just loosen it up a little more. Should you have any concerns or problems he can return to ER for recheck. Forms: Elevated Blood Pressure Referrals: PA GIBSON MD [Primary Care Provider] - Follow up as needed
== END 2019-02-10 01:34 | disposition home or self-care (01) ==
LOC: ER 21:01
DX: S63.502A Unspecified sprain of left wrist, initial encounter (principal); S80.02XA Contusion of left knee, initial encounter; S00.83XA Contusion of other part of head, initial encounter; W01.0XXA Fall on same level from slipping, tripping and stumbling without subsequent striking against object, initial encounter
CPT/HCPCS: 99283; 73564; 73110; L3908

== ENCOUNTER → 2019-09-06 | Outpatient (CLI) | payer BC ==
[2019-09-06 09:13] LABS: ABSOLUTE EOSINOPHILS # (AUTO) 0.1 10^3/uL (0.0-0.6); ABSOLUTE LYMPHOCYTES (AUTO) 2.4 10^3/uL (0.5-4.7); ABSOLUTE MONOCYTES (AUTO) 0.6 10^3/uL (0.1-1.4); ABSOLUTE NEUT (AUTO) 2.1 10^3/uL (1.7-8.2); BASOPHILS % (AUTO) 0.8 % (0-2); EOSINOPHILS % (AUTO) 2.6 % (0-6); HEMATOCRIT 38.1 % (36.0-47.0); HEMOGLOBIN 12.7 g/dL (12.0-15.5); LYMPHOCYTES % (AUTO) 45.2 % (13-45); MEAN CORPUSCULAR HEMOGLOBIN 26.5 pg (27.0-33.4); MEAN CORPUSCULAR HGB CONC 33.3 g/dL (32.0-36.0); MEAN CORPUSCULAR VOLUME 80 fl (80-97); MONOCYTES % (AUTO) 11.4 % (3-13); PLATELET COUNT 146 10^3/uL (150-450); RED BLOOD COUNT 4.78 10^6/uL (3.72-5.28); RED CELL DISTRIBUTION WIDTH 16.2 % (11.5-14.0); TOTAL CELLS COUNTED % (AUTO) 100 %; WHITE BLOOD COUNT 5.3 10^3/uL (4.0-10.5)
[2019-09-06 09:31] LABS: ALBUMIN 4.4 g/dL (3.5-5.0); ALKALINE PHOSPHATASE 91 U/L (38-126); ANION GAP 8 (5-19); ASPARTATE AMINO TRANSFERASE 52 U/L (14-36); BILIRUBIN,DIRECT 0.1 mg/dL (0.0-0.4); BILIRUBIN,TOTAL 0.5 mg/dL (0.2-1.3); BLOOD UREA NITROGEN 13 mg/dL (7-20); CALCIUM 9.4 mg/dL (8.4-10.2); CARBON DIOXIDE 31 mmol/L (22-30); CHLORIDE 103 mmol/L (98-107); CHOLESTEROL 177.01 mg/dL (0-200); GLUCOSE 87 mg/dL (75-110); POTASSIUM 4.3 mmol/L (3.6-5.0); TOTAL PROTEIN 7.8 g/dL (6.3-8.2); TRIGLYCERIDES 136 mg/dL (<150)
[2019-09-06 09:47] LABS: DIRECT LDL 69 mg/dL (<100)
[2019-09-06 10:11] LABS: FREE T4 (FREE THYROXINE) 1.01 ng/dL (0.78-2.19)
[2019-09-06 10:25] LABS: THYROID STIMULATING HORMONE 1.85 uIU/mL (0.47-4.68)
== END ==
LOC: LAB 08:59
PROVIDERS: ATTEND Physician Assistant
DX: I10 Essential (primary) hypertension (principal)
CPT/HCPCS: 36415; 80053; 80061; 84439; 84443; 85025

== ENCOUNTER → 2019-09-27 | Outpatient (CLI) | payer BC ==
--- NOTE | 2019-09-27 09:10 | WOMENS IMAGING REPORT ---
EXAM DESCRIPTION: 3D SCREENING MAMMO BILAT COMPLETED DATE/TIME: 09/27/2019 8:27 am REASON FOR STUDY: Z12.31 ENCOUNTER FOR SCREENING MAMMOGRAM FOR MALIGNANT NEOPLASM OF BREAST Z12.31 ENCNTR SCREEN MAMMOGRAM FOR MALIGNANT NEOPLASM OF SAMANTHA COMPARISON: 2015- 2017 EXAM PARAMETERS: Views: Standard craniocaudal and mediolateral oblique views of each breast recorded using digital acquisition and breast tomosynthesis. Read with the assistance of CAD. .[facility] - [employer] Accountant Version 9.2 LIMITATIONS: None. FINDINGS: No suspicious masses, suspicious calcifications or architectural distortion. No areas of c oncern. IMPRESSION: NEGATIVE MAMMOGRAM. BIRADS 1. BREAST DENSITY: b. There are scattered areas of fibroglandular density. BIRAD: ASSESSMENT: 1 NEGATIVE RECOMMENDATION: ROUTINE SCREENING COMMENT: The patient has been notified of the results by letter per MQSA requirements. Additional no tification policies are in place for contacting patient with suspicious or incomplete findings. Quality ID #[id number]: The [employer] recommends an annual screening mammogram for women aged 40 years or over. This facility utilizes a reminder system to ensure that all patients receive reminder letters, and/or direct phone calls for appointments. This includes reminders for routine scr eening mammograms, diagnostic mammograms, or other Breast Imaging Interventions when appropriate. Th is patient will be placed in the appropriate reminder system. TECHNICAL DOCUMENTATION: FINDING NUMBER: (1) ASSESSMENT: (1) JOB ID: [id number] [employer]- All Rights Reserved Reading location - IP/workstation name: [email or web address]
== END ==
LOC: WI 06:54
PROVIDERS: ATTEND Internal Medicine
DX: Z12.31 Encounter for screening mammogram for malignant neoplasm of breast (principal)
CPT/HCPCS: 77063; 77067

== ENCOUNTER → 2020-10-04 | Outpatient (CLI) | payer BC ==
--- NOTE | 2020-10-04 09:21 | WOMENS IMAGING REPORT ---
EXAM DESCRIPTION: 3D SCREENING MAMMO BILAT IMAGES COMPLETED DATE/TIME: 10/04/2020 7:47 am REASON FOR STUDY: ROUTINE BILATERAL SCREENING;Z12.31 Z12.31 ENCNTR SCREEN MAMMOGRAM FOR MALIGNANT N EOPLASM OF SAMANTHA COMPARISON: Priors dating back to 2013 EXAM PARAMETERS: Views: Standard craniocaudal and mediolateral oblique views of each breast recorded using digital acquisition and breast tomosynthesis. Read with the assistance of CAD. .[facility] - [employer] Subas[employer]er Version 9.2 LIMITATIONS: None. FINDINGS: No suspicious masses, suspicious calcifications or architectural distortion. No areas of c oncern. IMPRESSION: NEGATIVE MAMMOGRAM. BIRADS 1. BREAST DENSITY: b. There are scattered areas of fibroglandular density. BIRAD: ASSESSMENT: 1 NEGATIVE RECOMMENDATION: ROUTINE SCREENING COMMENT: The patient has been notified of the results by letter per MQSA requirements. Additional no tification policies are in place for contacting patient with suspicious or incomplete findings. Quality ID #[id number]: The [employer] recommends an annual screening mammogram for women aged 40 years or over. This facility utilizes a reminder system to ensure that all patients receive reminder letters, and/or direct phone calls for appointments. This includes reminders for routine scr eening mammograms, diagnostic mammograms, or other Breast Imaging Interventions when appropriate. Th is patient will be placed in the appropriate reminder system. TECHNICAL DOCUMENTATION: FINDING NUMBER: (1) ASSESSMENT: (1) JOB ID: [id number] [employer]- All Rights Reserved Reading location - IP/workstation name: [email or web address]
== END ==
LOC: WI 07:25
PROVIDERS: ATTEND Internal Medicine
DX: Z12.31 Encounter for screening mammogram for malignant neoplasm of breast (principal)
CPT/HCPCS: 77063; 77067